=== PATIENT | female | born 1950 | race Caucasian/White ===

== ENCOUNTER 2017-10-20 10:33 | Outpatient (CLI) | payer MEDICARE ==
[2017-10-20 11:58] LABS: Hemoglobin 12.9 g/dL (12.0-16.0)
[2017-10-20 12:19] LABS: Anion Gap 13 mmol/L (10-20); BUN (Urea Nitrogen) 28 mg/dL (9.8-20.1); Calc. Creatinine Clearance 0 mL/min (70-130); Calcium 9.3 mg/dL (7.8-10.44); Carbon Dioxide 32 mmol/L (23-31); Chloride 99 mmol/L (98-107); Estimated GFR-MDRD 42; Glucose 167 mg/dL (80-115); Potassium 4.3 mmol/L (3.5-5.1); Sodium 140 mmol/L (136-145)
== END 2017-10-20 10:34 | disposition home or self-care (01) ==
LOC: LABBT 10:33
PROVIDERS: ATTEND Internal Medicine Cardiovascular Disease
DX: Z01.812 Encounter for preprocedural laboratory examination (principal); R94.39 Abnormal result of other cardiovascular function study
CPT/HCPCS: 80048; 85014; 85018

== ENCOUNTER 2018-06-17 11:24 | Outpatient (CLI) | payer MEDICARE ==
--- NOTE | 2018-06-21 13:25 | MMO ---
Bilateral MAMMO Bilat Screen [facility]. CLINICAL HISTORY: Patient is 68 years old and is seen for screening. The patient has no family history of breast cancer. The patient has no personal history of cancer. The patient has a history of right Ultrasound Guided Core Biopsy in September,. VIEWS: The views performed were: bilateral craniocaudal with tomosynthesis and bilateral mediolateral oblique with tomosynthesis. FILMS COMPARED: The present examination has been compared to prior imaging studies performed at [facility] [place] on 09/23/2012, 09/24/2012, 09/28/2013, 10/02/2014, 01/10/2016 and 01/12/2017, and at [facility] on 08/12/2006, 10/27/2007 and 11/29/2008. MAMMOGRAM FINDINGS: There are scattered fibroglandular densities. Finding 1: There are stable benign appearing calcifications seen in both breasts. Finding 2: There are stable surgical clips seen in the right breast. There are no suspicious masses, suspicious calcifications, or new areas of architectural distortion. IMPRESSION: THERE IS NO MAMMOGRAPHIC EVIDENCE OF MALIGNANCY. A ROUTINE FOLLOW-UP MAMMOGRAM IN 1 YEAR IS RECOMMENDED. 3BTHE RESULTS OF THIS EXAM WERE SENT TO THE PATIENT.0B ACR BI-RADS Category 2 - Benign finding MAMMOGRAPHY NOTE: 1. A negative mammogram report should not delay a biopsy if a dominant of clinically suspicious mass is present. 2. Approximately 10% to 15% of breast cancers are not detected by mammography. 3. Adenosis and dense breasts may obscure an underlying neoplasm.
== END 2018-06-17 11:25 | disposition home or self-care (01) ==
LOC: BICMAMMO 11:24
PROVIDERS: ATTEND Physician Assistant
DX: Z12.31 Encounter for screening mammogram for malignant neoplasm of breast (principal); Z98.890 Other specified postprocedural states
CPT/HCPCS: 77063; 77067

== ENCOUNTER 2018-06-30 10:02 | Outpatient (CLI) | payer MEDICARE ==
--- NOTE | 2018-06-30 10:28 | RAD ---
F3 views left foot. HISTORY: Intermittent left foot pain first digit. AP, lateral and oblique views left foot is obtained. There is joint space narrowing with osteophytes seen in the first metatarsophalangeal joint. Degenerative changes with osteoarthritis seen in the midfoot tarsal joints. There is also a large tone caneal spur seen. No evidence of acute bony fracture seen. IMPRESSION: Mid tarsal left foot osteoarthritic changes as well as osteoarthritis in the first metata rsophalangeal joint.
== END 2018-06-30 10:03 | disposition home or self-care (01) ==
LOC: BICRAD 10:02
PROVIDERS: ATTEND Podiatrist
DX: M79.672 Pain in left foot (principal); M19.072 Primary osteoarthritis, left ankle and foot

== ENCOUNTER 2019-06-02 10:44 | Outpatient (CLI) | payer MEDICARE ==
--- NOTE | 2019-06-02 11:07 | RAD ---
3 views of left toes: 06/02/2019 COMPARISON: None HISTORY: Gout, pain FINDINGS: There is erosive change with sclerotic margins along the medial aspect of the first proxima l phalangeal base, consistent with the provided history of gout. 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 No acute fracture or evidence of dislocation is seen. IMPRESSION: Erosive change at the medial base of the first proximal phalanx consistent with the provi ded history of gout. There is severe associated secondary osteoarthritis of the first metatarsal-phalangeal joint.
== END 2019-06-02 10:45 | disposition home or self-care (01) ==
LOC: BICRAD 10:44
PROVIDERS: ATTEND Podiatrist
DX: M10.00 Idiopathic gout, unspecified site (principal)
CPT/HCPCS: 36415; 84550

== ENCOUNTER 2020-08-02 09:06 | Inpatient (IN) | payer MEDICARE ==
[2020-08-02 10:07] LABS: #Basophils 0.1 thou/uL (0.0-0.2); #Eosinphils 0.1 thou/uL (0.0-0.7); #Lymphocytes 1.8 thou/uL (1.20-3.40); #Monocytes 0.4 thou/uL (0.11-0.59); #Neutrophils 4.7 thou/uL (1.40-6.50); %Basophils 1.7 % (0.0-1.0); %Eosinophils 0.7 % (0.0-10.0); %Lymphocytes 25.2 % (21.0-51.0); %Monocytes 6.3 % (0.0-10.0); %Neutrophils 66.1 % (42.0-75.0); Hemoglobin 12.8 g/dL (12.0-16.0); Mean Corpuscular HGB CONC 31.7 g/dL (32.0-36.0); Mean Corpuscular Hemoglobin 29.4 pg (27.0-31.0); Mean Corpuscular Volume 92.8 fL (78.0-98.0); Mean Platelet Volume 7.7 fL (7.4-10.4); Platelet Count 250 thou/uL (130-400); RBC Distribution Width 12.7 % (11.5-14.5); Red Blood Cell (RBC) Count 4.36 mill/uL (4.20-5.40)
[2020-08-02 10:23] LABS: ALT (SGPT) 39 U/L (8-55); AST (SGOT) 32 U/L (5-34); Albumin 3.5 g/dL (3.4-4.8); Alkaline Phosphatase 69 U/L (40-110); Anion Gap 13 mmol/L (10-20); BUN (Urea Nitrogen) 24 mg/dL (9.8-20.1); Bilirubin, Total 0.6 mg/dL (0.2-1.2); Calc. Creatinine Clearance 0 mL/min (70-130); Calcium 8.9 mg/dL (7.8-10.44); Carbon Dioxide 25 mmol/L (23-31); Chloride 99 mmol/L (98-107); Globulin 2.5 g/dL (2.4-3.5); Glucose 168 mg/dL (80-115); Potassium 3.7 mmol/L (3.5-5.1); Sodium 133 mmol/L (136-145)
[2020-08-02] MEDS ORDERED: Acetaminophen 325 MG TAB PO PRN (10:53)
[2020-08-02] MEDS ORDERED: Acetaminophen 650 MG Suppository PR PRN (10:53)
[2020-08-02] MEDS ORDERED: Metoprolol Tartrate 25 MG TAB PO SCH ×2 (11:04→21:00)
[2020-08-02] MEDS ORDERED: Iopamidol-370 76% 500 ML 1 ML ONE (11:21)
[2020-08-02] MEDS ORDERED: Dextrose 50% Abboject 50 ML SYRINGE SLOW IVP PRN (11:57)
[2020-08-02] MEDS ORDERED: Dextrose 5% in Water 1,000 ML IV PRN (11:57)
[2020-08-02] MEDS ORDERED: HumaLOG 300 UNITS/3 ML VIAL SC PRN ×2 (11:57)
[2020-08-02] MEDS ORDERED: Furosemide 40 MG/4 ML VIAL ONE (14:10)
[2020-08-02] MEDS: Furosemide 40 MG/4 ML VIAL SLOW IVP SCH (14:28)
[2020-08-02 16:06] LABS: Troponin I 0.018 ng/mL (< 0.028)
[2020-08-02 16:44] LABS: SARS-CoV-2 PCR by NAA Not Detected (NotDetected)
[2020-08-02] MEDS: Carvedilol 6.25 MG TAB PO SCH (17:00)
[2020-08-02] MEDS ORDERED: HumaLOG 300 UNITS/3 ML VIAL ONE (17:05)
[2020-08-02] MEDS ORDERED: traMADol HCl 50 MG TAB PO SCH (20:45)
[2020-08-02 20:48] VITALS: BMI 38.1
[2020-08-02] MEDS: Enoxaparin Sodium 100 MG/ML SYRINGE SC SCH (21:19)
[2020-08-03 05:25] LABS: #Basophils 0.1 thou/uL (0.0-0.2); #Eosinphils 0.1 thou/uL (0.0-0.7); #Lymphocytes 2.4 thou/uL (1.20-3.40); #Monocytes 0.4 thou/uL (0.11-0.59); #Neutrophils 2.1 thou/uL (1.40-6.50); %Basophils 1.5 % (0.0-1.0); %Eosinophils 1.5 % (0.0-10.0); %Lymphocytes 46.8 % (21.0-51.0); %Monocytes 8.4 % (0.0-10.0); %Neutrophils 41.8 % (42.0-75.0); Hemoglobin 12.2 g/dL (12.0-16.0); Mean Corpuscular HGB CONC 31.3 g/dL (32.0-36.0); Mean Corpuscular Volume 92.6 fL (78.0-98.0); Mean Platelet Volume 8.2 fL (7.4-10.4); Platelet Count 219 thou/uL (130-400); RBC Distribution Width 12.7 % (11.5-14.5)
[2020-08-03 05:52] LABS: Anion Gap 11 mmol/L (10-20); BUN (Urea Nitrogen) 22 mg/dL (9.8-20.1); Calc. Creatinine Clearance 103 mL/min (70-130); Calcium 8.8 mg/dL (7.8-10.44); Carbon Dioxide 29 mmol/L (23-31); Chloride 101 mmol/L (98-107); Glucose 113 mg/dL (80-115); Potassium 3.5 mmol/L (3.5-5.1); Sodium 137 mmol/L (136-145)
[2020-08-03] MEDS ORDERED: Levothyroxine Sodium 100 MCG TAB PO SCH (06:00)
[2020-08-03] MEDS: Furosemide 40 MG/4 ML VIAL SLOW IVP SCH ×2 (06:37→15:46)
[2020-08-03] MEDS ORDERED: Aspirin Chewable 81 MG TAB PO SCH (09:00)
[2020-08-03] MEDS ORDERED: Pregabalin 75 MG CAP PO SCH (09:00)
[2020-08-03] MEDS ORDERED: Triamterene/Hydrochlorothiazide 37.5 mg/25 mg Tablet PO SCH (09:00)
[2020-08-03] MEDS: Enoxaparin Sodium 100 MG/ML SYRINGE SC SCH (09:14)
[2020-08-03] MEDS: Carvedilol 6.25 MG TAB PO SCH ×2 (09:14→15:46)
[2020-08-03 11:40] VITALS: TEMP 98.4
[2020-08-03 16:36] VITALS: BP 167/111
[2020-08-03] MEDS ORDERED: Apixaban 5 MG TAB PO SCH (21:00)
== END 2020-08-03 16:45 | disposition home or self-care (01) | DRG 308 ==
LOC: ERS 09:06 → OBSVTOIN 11:00 → ERHOLD 11:00 → 2NO 20:14
PROVIDERS: ADMIT Internal Medicine; ATTEND Internal Medicine
DX: I48.91 Unspecified atrial fibrillation (principal); I50.23 Acute on chronic systolic (congestive) heart failure; I11.0 Hypertensive heart disease with heart failure; Z20.822 Contact with and (suspected) exposure to COVID-19; E78.5 Hyperlipidemia, unspecified; M19.90 Unspecified osteoarthritis, unspecified site; E11.9 Type 2 diabetes mellitus without complications; G89.29 Other chronic pain; M54.9 Dorsalgia, unspecified; Z96.641 Presence of right artificial hip joint; E89.0 Postprocedural hypothyroidism; Z96.653 Presence of artificial knee joint, bilateral; I08.3 Combined rheumatic disorders of mitral, aortic and tricuspid valves; Z82.49 Family history of ischemic heart disease and other diseases of the circulatory system; Z79.899 Other long term (current) drug therapy; Z79.4 Long term (current) use of insulin; Z79.890 Hormone replacement therapy
CPT/HCPCS: 36415; 36416; 71045; 71275; 80048; 80053; 83735; 83880; 84443; 84484; 85025; 87635; 93005; 93306; 96374; G0378; J1650; J1815; J1940; Q9967; U0003; U0005

== ENCOUNTER 2020-09-12 12:03 | Inpatient (IN) | payer MEDICARE ==
[2020-09-12 12:31] LABS: #Monocytes 0.6 thou/uL (0.11-0.59); %Basophils 0.1 % (0.0-1.0); %Eosinophils 0.1 % (0.0-10.0); %Lymphocytes 6.3 % (21.0-51.0); %Monocytes 3.7 % (0.0-10.0); %Neutrophils 89.8 % (42.0-75.0); Hemoglobin 13.1 g/dL (12.0-16.0); Mean Corpuscular HGB CONC 32.7 g/dL (32.0-36.0); Mean Corpuscular Hemoglobin 29.6 pg (27.0-31.0); Mean Corpuscular Volume 90.7 fL (78.0-98.0); Mean Platelet Volume 8.9 fL (7.4-10.4); Platelet Count 209 thou/uL (130-400); RBC Distribution Width 12.1 % (11.5-14.5); White Blood Cell (WBC) Count 15.6 thou/uL (4.8-10.8)
[2020-09-12 12:55] LABS: ALT (SGPT) 10 U/L (8-55); AST (SGOT) 13 U/L (5-34); Albumin 3.1 g/dL (3.4-4.8); Alkaline Phosphatase 80 U/L (40-110); Anion Gap 17 mmol/L (10-20); BUN (Urea Nitrogen) 49 mg/dL (9.8-20.1); CK (CPK) 49 U/L (29-168); Calc. Creatinine Clearance 0 mL/min (70-130); Calcium 8.7 mg/dL (7.8-10.44); Carbon Dioxide 24 mmol/L (23-31); Chloride 94 mmol/L (98-107); Globulin 3.3 g/dL (2.4-3.5); Glucose 123 mg/dL (80-115); Potassium 3.7 mmol/L (3.5-5.1); Protein, Total 6.4 g/dL (5.8-8.1); Sodium 131 mmol/L (136-145)
[2020-09-12] MEDS ORDERED: Iopamidol-370 76% 500 ML 1 ML ONE (14:01)
[2020-09-12] MEDS ORDERED: Cefepime 2 GM VIAL ONE (14:05)
[2020-09-12] MEDS ORDERED: VANCOMYCIN 2 GRAM/400 ML BAG 2 GM in Premix Bag 1 BAG IVPB SCH (14:15)
[2020-09-12] MEDS ORDERED: Enoxaparin Sodium 40 MG/0.4 ML SYRINGE SC SCH (16:30)
[2020-09-12 18:52] VITALS: BMI 36.0
[2020-09-12] MEDS: Sodium Chloride 0.9% 1,000 ML IV SCH (19:20)
[2020-09-12] MEDS: Famotidine/PF 20 mg/2ml Vial SLOW IVP SCH (20:22)
[2020-09-12] MEDS ORDERED: Dextrose 50% Abboject 50 ML SYRINGE ONE (21:29)
[2020-09-12] MEDS ORDERED: Dextrose 50% Abboject 50 ML SYRINGE SLOW IVP PRN (21:36)
[2020-09-12] MEDS: Piperacillin/Tazobactam 3.375 GM in Sodium Chloride 0.9% 100 ML IVPB SCH (21:52)
[2020-09-13] MEDS: Sodium Chloride 0.9% 1,000 ML IV SCH ×3 (03:25→22:53)
[2020-09-13 03:26] LABS: #Lymphocytes 0.9 thou/uL (1.20-3.40); #Monocytes 0.5 thou/uL (0.11-0.59); #Neutrophils 10.5 thou/uL (1.40-6.50); %Basophils 0.1 % (0.0-1.0); %Eosinophils 0.4 % (0.0-10.0); %Lymphocytes 7.5 % (21.0-51.0); %Monocytes 4.2 % (0.0-10.0); %Neutrophils 87.8 % (42.0-75.0); Hemoglobin 12.4 g/dL (12.0-16.0); Mean Corpuscular HGB CONC 32.9 g/dL (32.0-36.0); Mean Corpuscular Hemoglobin 29.6 pg (27.0-31.0); Mean Corpuscular Volume 90.1 fL (78.0-98.0); Mean Platelet Volume 8.8 fL (7.4-10.4); Platelet Count 192 thou/uL (130-400); RBC Distribution Width 12.2 % (11.5-14.5); Red Blood Cell (RBC) Count 4.19 mill/uL (4.20-5.40); White Blood Cell (WBC) Count 11.9 thou/uL (4.8-10.8)
[2020-09-13 03:45] LABS: Anion Gap 14 mmol/L (10-20); BUN (Urea Nitrogen) 43 mg/dL (9.8-20.1); Calc. Creatinine Clearance 80 mL/min (70-130); Calcium 8.1 mg/dL (7.8-10.44); Carbon Dioxide 20 mmol/L (23-31); Chloride 101 mmol/L (98-107); Glucose 92 mg/dL (80-115); Sodium 132 mmol/L (136-145)
[2020-09-13 03:48] LABS: Potassium 2.9 mmol/L (3.5-5.1)
[2020-09-13] MEDS: Piperacillin/Tazobactam 3.375 GM in Sodium Chloride 0.9% 100 ML IVPB SCH ×3 (05:27→17:36)
[2020-09-13] MEDS: Potassium Chloride 20 MEQ in Premix Bag 1 BAG IVPB SCH ×2 (05:50→08:23)
[2020-09-13] MEDS: Enoxaparin Sodium 40 MG/0.4 ML SYRINGE SC SCH (08:23)
[2020-09-13] MEDS: Famotidine/PF 20 mg/2ml Vial SLOW IVP SCH ×2 (08:23→20:21)
[2020-09-13] MEDS ORDERED: Metoprolol Tartrate 50 MG TAB PO SCH (09:30)
[2020-09-13] MEDS ORDERED: Vancomycin 1.5 GRAM/300 ML BAG 1.5 GM in Premix Bag 1 BAG IVPB SCH (15:00)
[2020-09-13 15:06] LABS: SARS-CoV-2 PCR by NAA DETECTED (NotDetected)
[2020-09-13] MEDS: Pregabalin 75 MG CAP PO SCH ×2 (15:58→20:20)
[2020-09-13] MEDS ORDERED: Digoxin 0.5 MG/2 ML AMP SLOW IVP SCH (19:45)
[2020-09-13] MEDS: Metoprolol Tartrate 25 MG TAB PO SCH (20:21)
[2020-09-13 21:03] LABS: SARS-CoV-2 IgG Ab Reactive (NonReactive); SARS-CoV-2 IgG Index 4.57 S/CO (< 1.40)
[2020-09-14] MEDS: Piperacillin/Tazobactam 3.375 GM in Sodium Chloride 0.9% 100 ML IVPB SCH ×2 (00:02→06:19)
[2020-09-14 03:21] LABS: #Basophils 0.1 thou/uL (0.0-0.2); #Eosinphils 0.1 thou/uL (0.0-0.7); #Lymphocytes 1.3 thou/uL (1.20-3.40); #Monocytes 0.7 thou/uL (0.11-0.59); #Neutrophils 11.2 thou/uL (1.40-6.50); %Basophils 0.6 % (0.0-1.0); %Eosinophils 0.7 % (0.0-10.0); %Neutrophils 83.7 % (42.0-75.0); Hemoglobin 12.1 g/dL (12.0-16.0); Mean Corpuscular HGB CONC 33.4 g/dL (32.0-36.0); Mean Corpuscular Hemoglobin 30.1 pg (27.0-31.0); Mean Corpuscular Volume 90.1 fL (78.0-98.0); Mean Platelet Volume 8.6 fL (7.4-10.4); Platelet Count 214 thou/uL (130-400); RBC Distribution Width 12.2 % (11.5-14.5); Red Blood Cell (RBC) Count 4.03 mill/uL (4.20-5.40); White Blood Cell (WBC) Count 13.3 thou/uL (4.8-10.8)
[2020-09-14 03:44] LABS: ALT (SGPT) 9 U/L (8-55); AST (SGOT) 11 U/L (5-34); Albumin 2.7 g/dL (3.4-4.8); Alkaline Phosphatase 69 U/L (40-110); Anion Gap 12 mmol/L (10-20); BUN (Urea Nitrogen) 42 mg/dL (9.8-20.1); Bilirubin, Total 1.2 mg/dL (0.2-1.2); Calc. Creatinine Clearance 72 mL/min (70-130); Calcium 8.2 mg/dL (7.8-10.44); Carbon Dioxide 19 mmol/L (23-31); Chloride 104 mmol/L (98-107); Globulin 2.9 g/dL (2.4-3.5); Glucose 149 mg/dL (80-115); Magnesium 2.3 mg/dL (1.6-2.6); Potassium 3.3 mmol/L (3.5-5.1); Protein, Total 5.6 g/dL (5.8-8.1); Sodium 132 mmol/L (136-145)
[2020-09-14] MEDS: Levothyroxine Sodium 100 MCG TAB PO SCH (06:19)
[2020-09-14] MEDS ORDERED: Potassium Chloride 40 MEQ in Sodium Chloride 0.9% 250 ML 250 ML IVPB SCH (08:30)
[2020-09-14] MEDS: Alogliptin 25 MG TAB PO SCH (08:52)
[2020-09-14] MEDS: Sodium Chloride 0.9% 1,000 ML IV SCH (08:52)
[2020-09-14] MEDS: Famotidine 20 MG TAB PO SCH ×2 (08:53→20:11)
[2020-09-14] MEDS: Pregabalin 75 MG CAP PO SCH ×3 (08:53→20:11)
[2020-09-14] MEDS: Enoxaparin Sodium 40 MG/0.4 ML SYRINGE SC SCH (08:53)
[2020-09-14] MEDS: Metoprolol Tartrate 25 MG TAB PO SCH ×2 (08:53→20:19)
[2020-09-14] MEDS: metroNIDAZOLE 500 MG TAB PO SCH ×3 (10:35→20:11)
[2020-09-14] MEDS: traMADol HCl 50 MG TAB PO PRN (20:11)
[2020-09-14] MEDS: Apixaban 5 MG TAB PO SCH (20:11)
[2020-09-14] MEDS ORDERED: Polyethylene Glycol 3350 17 GM Packet PO STA (21:13)
[2020-09-14] MEDS ORDERED: Potassium Chloride 10 MEQ in Dextrose 5 % And 0.9 % NaCl 1,000 ML IV SCH (21:30)
[2020-09-14] MEDS ORDERED: Lactated Ringer's 1,000 ML IV SCH (21:30)
[2020-09-14] MEDS ORDERED: Dextrose 50% Abboject 50 ML SYRINGE SLOW IVP PRN (21:57)
[2020-09-14] MEDS ORDERED: Dextrose 5% in Water 1,000 ML IV PRN (21:57)
[2020-09-14] MEDS: NS 0.9% w/ 20 MEQ KCL 1,000 ML/1,000 ML BAG IV SCH (23:30)
[2020-09-15] MEDS ORDERED: Digoxin 0.5 MG/2 ML AMP SLOW IVP SCH ×2 (00:30→23:15)
[2020-09-15] MEDS: Sodium Chloride 0.9% 1,000 ML IV SCH (03:27)
[2020-09-15] MEDS: Levothyroxine Sodium 100 MCG TAB PO SCH (05:26)
[2020-09-15 05:44] LABS: #Lymphocytes 1.4 thou/uL (1.20-3.40); #Neutrophils 10.9 thou/uL (1.40-6.50); %Basophils 0.2 % (0.0-1.0); %Eosinophils 0.3 % (0.0-10.0); %Lymphocytes 10.7 % (21.0-51.0); %Monocytes 7.4 % (0.0-10.0); %Neutrophils 81.4 % (42.0-75.0); Mean Corpuscular HGB CONC 32.7 g/dL (32.0-36.0); Mean Corpuscular Hemoglobin 29.7 pg (27.0-31.0); Mean Corpuscular Volume 90.8 fL (78.0-98.0); Mean Platelet Volume 8.3 fL (7.4-10.4); Platelet Count 234 thou/uL (130-400); RBC Distribution Width 12.2 % (11.5-14.5); Red Blood Cell (RBC) Count 4.37 mill/uL (4.20-5.40); White Blood Cell (WBC) Count 13.3 thou/uL (4.8-10.8)
[2020-09-15 05:53] LABS: INR-International Normal Ratio 1.5
[2020-09-15 06:03] LABS: Phosphorus 2.5 mg/dL (2.3-4.7)
[2020-09-15 06:05] LABS: Digoxin 1.65 ng/mL (0.8-2.0)
[2020-09-15 06:06] LABS: Anion Gap 13 mmol/L (10-20); BUN (Urea Nitrogen) 28 mg/dL (9.8-20.1); Calc. Creatinine Clearance 93 mL/min (70-130); Calcium 8.5 mg/dL (7.8-10.44); Carbon Dioxide 20 mmol/L (23-31); Chloride 106 mmol/L (98-107); Glucose 132 mg/dL (80-115); Magnesium 2.2 mg/dL (1.6-2.6); Sodium 135 mmol/L (136-145)
[2020-09-15 06:15] LABS: Bilirubin Negative (Negative); Blood, Urine Negative (Negative); Clarity Clear (Clear); Glucose, Urine (Dipstick) Normal (Negative); Ketone, Urine 10 mg/dL (Negative); Leukocyte Negative Leu/uL (Negative); Nitrite Negative (Negative); Protein, Urine (Dipstick) 30 mg/dL (Neg-Trace); RBC/HPF 0-3 HPF (0-3); Specific Gravity, Urine 1.017 (1.002-1.036); Squamous Epithelial 0-3 HPF (0-3); WBC/HPF 0-3 HPF (0-3); pH, Urine 5.5 (5.0-9.0)
[2020-09-15 06:16] LABS: Bacteria/HPF 1+ HPF (None Seen)
[2020-09-15] MEDS: metroNIDAZOLE 500 MG TAB PO SCH ×3 (08:19→21:00)
[2020-09-15] MEDS: Metoprolol Tartrate 25 MG TAB PO SCH ×3 (08:19→21:00)
[2020-09-15] MEDS: Alogliptin 25 MG TAB PO SCH (08:19)
[2020-09-15] MEDS: Cholecalciferol 1,000 UNITS (25 MCG) TAB PO SCH (08:22)
[2020-09-15] MEDS: Famotidine 20 MG TAB PO SCH ×2 (08:22→21:00)
[2020-09-15] MEDS: Senokot S 8.6-50 MG TAB PO SCH ×2 (08:22→21:01)
[2020-09-15] MEDS: Pregabalin 75 MG CAP PO SCH ×3 (08:24→20:58)
[2020-09-15] MEDS ORDERED: M PROGEST ACET PO SCH (09:00)
[2020-09-15] MEDS ORDERED: Potassium Chloride 10 MEQ TAB PO SCH (09:00)
[2020-09-15] MEDS ORDERED: ESTROGEN CON PO SCH (09:00)
[2020-09-15] MEDS: NS 0.9% w/ 20 MEQ KCL 1,000 ML/1,000 ML BAG IV SCH ×2 (10:25→20:56)
[2020-09-15 10:44] LABS: Band 19 % (5-11); Hemoglobin 13.7 g/dL (12.0-16.0); Lymphocytes 14 % (21-51); MDiff Complete? YES; Mean Corpuscular HGB CONC 33.2 g/dL (32.0-36.0); Mean Corpuscular Hemoglobin 30.6 pg (27.0-31.0); Mean Platelet Volume 8.1 fL (7.4-10.4); Monocytes 6 % (0-10); Neutrophil 61 % (42-75); Platelet Count 248 thou/uL (130-400); RBC Distribution Width 12.1 % (11.5-14.5); Red Blood Cell (RBC) Count 4.49 mill/uL (4.20-5.40); White Blood Cell (WBC) Count 11.8 thou/uL (4.8-10.8)
[2020-09-15 10:46] LABS: Digoxin 0.81 ng/mL (0.8-2.0)
[2020-09-15] MEDS ORDERED: Apixaban 5 MG TAB PO SCH (11:15)
[2020-09-15] MEDS ORDERED: Insulin Regular 300 UNITS/3 ML VIAL SC PRN ×2 (11:33)
[2020-09-15] MEDS: traMADol HCl 50 MG TAB PO PRN (16:05)
[2020-09-15] MEDS: Potassium Chloride 10 MEQ TAB PO SCH (16:06)
[2020-09-15] MEDS: Apixaban 5 MG TAB PO SCH (21:00)
[2020-09-16 05:26] LABS: #Eosinphils 0.1 thou/uL (0.0-0.7); #Lymphocytes 1.5 thou/uL (1.20-3.40); #Neutrophils 11.1 thou/uL (1.40-6.50); %Basophils 0.1 % (0.0-1.0); %Monocytes 7.4 % (0.0-10.0); %Neutrophils 80.6 % (42.0-75.0); Hemoglobin 12.9 g/dL (12.0-16.0); Mean Corpuscular HGB CONC 32.8 g/dL (32.0-36.0); Mean Corpuscular Hemoglobin 29.8 pg (27.0-31.0); Mean Corpuscular Volume 90.9 fL (78.0-98.0); Mean Platelet Volume 8.1 fL (7.4-10.4); Platelet Count 252 thou/uL (130-400); RBC Distribution Width 12.2 % (11.5-14.5); Red Blood Cell (RBC) Count 4.32 mill/uL (4.20-5.40); White Blood Cell (WBC) Count 13.7 thou/uL (4.8-10.8)
[2020-09-16 05:50] LABS: ALT (SGPT) 9 U/L (8-55); AST (SGOT) 11 U/L (5-34); Albumin 2.6 g/dL (3.4-4.8); Alkaline Phosphatase 62 U/L (40-110); Anion Gap 13 mmol/L (10-20); BUN (Urea Nitrogen) 20 mg/dL (9.8-20.1); Bilirubin, Total 0.7 mg/dL (0.2-1.2); Calc. Creatinine Clearance 110 mL/min (70-130); Calcium 8.4 mg/dL (7.8-10.44); Carbon Dioxide 20 mmol/L (23-31); Chloride 108 mmol/L (98-107); Globulin 2.6 g/dL (2.4-3.5); Glucose 157 mg/dL (80-115); Potassium 4.5 mmol/L (3.5-5.1); Protein, Total 5.2 g/dL (5.8-8.1); Sodium 136 mmol/L (136-145)
[2020-09-16] MEDS: Levothyroxine Sodium 100 MCG TAB PO SCH (06:23)
[2020-09-16] MEDS: NS 0.9% w/ 20 MEQ KCL 1,000 ML/1,000 ML BAG IV SCH ×2 (08:01→15:07)
[2020-09-16 08:41] LABS: Band 7 % (5-11); Lymphocytes 13 % (21-51); Monocytes 4 % (0-10)
[2020-09-16 08:43] LABS: Neutrophil 76 % (42-75)
[2020-09-16] MEDS: Potassium Chloride 10 MEQ TAB PO SCH (09:00)
[2020-09-16] MEDS: Digoxin 0.5 MG/2 ML AMP SLOW IVP SCH (10:26)
[2020-09-16] MEDS: Senokot S 8.6-50 MG TAB PO SCH ×2 (10:36→20:16)
[2020-09-16] MEDS: metroNIDAZOLE 500 MG TAB PO SCH ×3 (10:36→20:16)
[2020-09-16] MEDS: Apixaban 5 MG TAB PO SCH ×2 (10:36→20:16)
[2020-09-16] MEDS: Metoprolol Tartrate 25 MG TAB PO SCH ×2 (10:44→20:16)
[2020-09-16] MEDS: Pregabalin 75 MG CAP PO SCH ×3 (10:44→20:14)
[2020-09-16] MEDS: Famotidine 20 MG TAB PO SCH ×2 (10:45→20:15)
[2020-09-16] MEDS: Cholecalciferol 1,000 UNITS (25 MCG) TAB PO SCH (10:46)
[2020-09-16] MEDS: traMADol HCl 50 MG TAB PO PRN ×3 (10:51→20:42)
[2020-09-16] MEDS: Alogliptin 25 MG TAB PO SCH (10:51)
[2020-09-16] MEDS ORDERED: Ondansetron ODT 4 MG TAB PO PRN (18:23)
[2020-09-16] MEDS ORDERED: Ondansetron PF 4 MG/2 ML Vial IVP PRN (18:40)
[2020-09-16] MEDS: Furosemide 20 MG TAB PO SCH (20:15)
[2020-09-17] MEDS: Levothyroxine Sodium 100 MCG TAB PO SCH (05:13)
[2020-09-17 05:38] LABS: Hemoglobin 12.8 g/dL (12.0-16.0); Mean Corpuscular HGB CONC 32.3 g/dL (32.0-36.0); Mean Corpuscular Hemoglobin 29.8 pg (27.0-31.0); Mean Corpuscular Volume 92.2 fL (78.0-98.0); Mean Platelet Volume 7.9 fL (7.4-10.4); Platelet Count 280 thou/uL (130-400); RBC Distribution Width 12.3 % (11.5-14.5); White Blood Cell (WBC) Count 15.1 thou/uL (4.8-10.8)
[2020-09-17 05:53] LABS: Digoxin 1.25 ng/mL (0.8-2.0)
[2020-09-17 06:05] LABS: Anion Gap 12 mmol/L (10-20); BUN (Urea Nitrogen) 16 mg/dL (9.8-20.1); Calc. Creatinine Clearance 116 mL/min (70-130); Calcium 8.9 mg/dL (7.8-10.44); Carbon Dioxide 19 mmol/L (23-31); Chloride 105 mmol/L (98-107); Glucose 141 mg/dL (80-115); Phosphorus 3.1 mg/dL (2.3-4.7); Potassium 4.7 mmol/L (3.5-5.1); Sodium 131 mmol/L (136-145)
[2020-09-17 06:14] LABS: Band 14 % (5-11); Eosinophils 2 % (0-10); Lymphocytes 7 % (21-51); MDiff Complete? YES; Monocytes 6 % (0-10); Neutrophil 71 % (42-75)
[2020-09-17] MEDS: Pregabalin 75 MG CAP PO SCH ×3 (09:01→22:31)
[2020-09-17] MEDS: Senokot S 8.6-50 MG TAB PO SCH (09:01)
[2020-09-17] MEDS: Famotidine 20 MG TAB PO SCH ×2 (09:02→22:31)
[2020-09-17] MEDS: Apixaban 5 MG TAB PO SCH ×2 (09:02→22:32)
[2020-09-17] MEDS: Furosemide 20 MG TAB PO SCH ×2 (09:02→22:32)
[2020-09-17] MEDS: metroNIDAZOLE 500 MG TAB PO SCH ×3 (09:02→22:30)
[2020-09-17] MEDS: Cholecalciferol 1,000 UNITS (25 MCG) TAB PO SCH (09:03)
[2020-09-17] MEDS: Metoprolol Tartrate 25 MG TAB PO SCH ×2 (09:04→18:45)
[2020-09-17] MEDS: Alogliptin 25 MG TAB PO SCH (09:05)
[2020-09-17] MEDS: Digoxin 0.5 MG/2 ML AMP SLOW IVP SCH (11:42)
[2020-09-17] MEDS: traMADol HCl 50 MG TAB PO PRN (12:46)
[2020-09-17] MEDS ORDERED: Saccharomyces boulardii 250 MG CAP PO SCH (15:45)
[2020-09-17] MEDS ORDERED: Benzonatate 100 MG CAP PO PRN (22:53)
[2020-09-18] MEDS: Levothyroxine Sodium 100 MCG TAB PO SCH (06:12)
[2020-09-18] MEDS: Pregabalin 75 MG CAP PO SCH ×3 (08:57→21:40)
[2020-09-18] MEDS: Furosemide 20 MG TAB PO SCH ×2 (08:57→21:38)
[2020-09-18] MEDS: metroNIDAZOLE 500 MG TAB PO SCH ×3 (08:57→21:37)
[2020-09-18] MEDS: Apixaban 5 MG TAB PO SCH ×2 (08:57→21:37)
[2020-09-18] MEDS: Famotidine 20 MG TAB PO SCH ×2 (08:57→21:37)
[2020-09-18] MEDS: Metoprolol Tartrate 25 MG TAB PO SCH ×2 (08:57→21:38)
[2020-09-18] MEDS: Cholecalciferol 1,000 UNITS (25 MCG) TAB PO SCH (08:58)
[2020-09-18] MEDS: Alogliptin 25 MG TAB PO SCH (08:59)
[2020-09-18] MEDS: Digoxin 0.5 MG/2 ML AMP SLOW IVP SCH (10:00)
[2020-09-18] MEDS ORDERED: Digoxin 0.125 MG TAB PO SCH (10:45)
[2020-09-18] MEDS: Saccharomyces boulardii 250 MG CAP PO SCH (11:14)
[2020-09-18] MEDS: Methyl Salicylate/Menthol 85 GM TUBE TOP PRN ×2 (13:20→17:46)
[2020-09-18] MEDS: traMADol HCl 50 MG TAB PO PRN (21:38)
[2020-09-19 05:17] LABS: #Basophils 0.1 thou/uL (0.0-0.2); #Eosinphils 0.1 thou/uL (0.0-0.7); #Lymphocytes 1.7 thou/uL (1.20-3.40); #Monocytes 1.2 thou/uL (0.11-0.59); #Neutrophils 15.3 thou/uL (1.40-6.50); %Basophils 0.3 % (0.0-1.0); %Eosinophils 0.8 % (0.0-10.0); %Lymphocytes 9.3 % (21.0-51.0); %Monocytes 6.6 % (0.0-10.0); %Neutrophils 83.1 % (42.0-75.0); Hemoglobin 12.6 g/dL (12.0-16.0); Mean Corpuscular Hemoglobin 29.6 pg (27.0-31.0); Mean Corpuscular Volume 89.7 fL (78.0-98.0); Mean Platelet Volume 7.7 fL (7.4-10.4); Platelet Count 310 thou/uL (130-400); RBC Distribution Width 12.2 % (11.5-14.5); Red Blood Cell (RBC) Count 4.27 mill/uL (4.20-5.40); White Blood Cell (WBC) Count 18.4 thou/uL (4.8-10.8)
[2020-09-19] MEDS: Levothyroxine Sodium 100 MCG TAB PO SCH (05:33)
[2020-09-19 06:04] LABS: Anion Gap 13 mmol/L (10-20); BUN (Urea Nitrogen) 14 mg/dL (9.8-20.1); Calc. Creatinine Clearance 109 mL/min (70-130); Carbon Dioxide 24 mmol/L (23-31); Chloride 97 mmol/L (98-107); Glucose 162 mg/dL (80-115); Magnesium 1.4 mg/dL (1.6-2.6); Potassium 3.6 mmol/L (3.5-5.1); Sodium 130 mmol/L (136-145)
[2020-09-19] MEDS ORDERED: Magnesium Sulfate 4 GM in Sodium Chloride 0.9% 250 ML 250 ML IVPB SCH (08:00)
[2020-09-19] MEDS ORDERED: Potassium Chloride 10 MEQ TAB PO SCH (08:00)
[2020-09-19] MEDS ORDERED: Digoxin 0.125 MG TAB PO SCH (09:00)
[2020-09-19] MEDS: Cholecalciferol 1,000 UNITS (25 MCG) TAB PO SCH (10:17)
[2020-09-19] MEDS: Apixaban 5 MG TAB PO SCH ×2 (10:17→21:25)
[2020-09-19] MEDS: metroNIDAZOLE 500 MG TAB PO SCH ×3 (10:17→21:27)
[2020-09-19] MEDS: Saccharomyces boulardii 250 MG CAP PO SCH (10:17)
[2020-09-19] MEDS: Metoprolol Tartrate 25 MG TAB PO SCH ×2 (10:17→21:25)
[2020-09-19] MEDS: Famotidine 20 MG TAB PO SCH ×2 (10:18→21:25)
[2020-09-19] MEDS: Furosemide 20 MG TAB PO SCH ×2 (10:18→21:25)
[2020-09-19] MEDS: Pregabalin 75 MG CAP PO SCH ×3 (10:18→21:25)
[2020-09-19] MEDS: Alogliptin 25 MG TAB PO SCH (11:55)
[2020-09-19] MEDS: traMADol HCl 50 MG TAB PO PRN (12:01)
[2020-09-19 15:49] VITALS: BP 119/63; TEMP 97.9
== END 2020-09-19 21:33 | DRG 872 ==
LOC: ERS 12:03 → IMCU/EMU 15:44 → SURG A 09-14 11:07 → 2SE 09-15 03:24
PROVIDERS: ADMIT Internal Medicine; ATTEND Internal Medicine
PROC: 0T9B70Z Drainage of Bladder with Drainage Device, Via Natural or Artificial Opening (ICD-10-PCS; principal; 2020-09-15)
DX: A41.9 Sepsis, unspecified organism (principal); K57.20 Diverticulitis of large intestine with perforation and abscess without bleeding; E87.1 Hypo-osmolality and hyponatremia; N17.9 Acute kidney failure, unspecified; R65.20 Severe sepsis without septic shock; I48.91 Unspecified atrial fibrillation; E66.9 Obesity, unspecified; N18.2 Chronic kidney disease, stage 2 (mild); E87.6 Hypokalemia; R94.5 Abnormal results of liver function studies; K80.20 Calculus of gallbladder without cholecystitis without obstruction; E11.22 Type 2 diabetes mellitus with diabetic chronic kidney disease; I12.9 Hypertensive chronic kidney disease with stage 1 through stage 4 chronic kidney disease, or unspecified chronic kidney disease; G89.29 Other chronic pain; M54.9 Dorsalgia, unspecified; M19.90 Unspecified osteoarthritis, unspecified site; E78.5 Hyperlipidemia, unspecified; E86.1 Hypovolemia; Z96.641 Presence of right artificial hip joint; E89.0 Postprocedural hypothyroidism; K66.8 Other specified disorders of peritoneum; Z96.653 Presence of artificial knee joint, bilateral; R33.9 Retention of urine, unspecified; Z86.16 Personal history of COVID-19; Z79.899 Other long term (current) drug therapy; Z98.890 Other specified postprocedural states; Z68.36 Body mass index [BMI] 36.0-36.9, adult; Z79.01 Long term (current) use of anticoagulants; Z79.84 Long term (current) use of oral hypoglycemic drugs; Z82.49 Family history of ischemic heart disease and other diseases of the circulatory system
CPT/HCPCS: 36415; 36416; 71045; 74018; 74177; 80048; 80053; 80162; 81003; 81015; 82550; 83605; 83690; 83735; 84100; 84484; 85007; 85025; 85027; 85610; 85730; 86769; 93005; 93010; 96365; 96366; 96367; J0692; J1160; J1650; J1815; J2543; J3370; J3475; J3480; J3490; J7050; Q9967; S0028; U0003; U0005

== ENCOUNTER 2020-09-23 15:58 | Inpatient (IN) | payer MEDICARE ==
[2020-09-23] MEDS ORDERED: Vancomycin 1 GM/200 ML BAG ONE (16:24)
[2020-09-23] MEDS ORDERED: Piperacillin/Tazobactam 4.5 GM VIAL ONE (16:24)
[2020-09-23] MEDS ORDERED: Sodium Chloride 0.9% 100 ML ONE (16:24)
[2020-09-23 17:15] LABS: Mean Corpuscular HGB CONC 31.3 g/dL (32.0-36.0); Mean Corpuscular Hemoglobin 28.4 pg (27.0-31.0); Mean Corpuscular Volume 90.7 fL (78.0-98.0); Mean Platelet Volume 7.5 fL (7.4-10.4); Platelet Count 297 thou/uL (130-400); RBC Distribution Width 12.4 % (11.5-14.5); Red Blood Cell (RBC) Count 4.59 mill/uL (4.20-5.40); White Blood Cell (WBC) Count 17.6 thou/uL (4.8-10.8)
[2020-09-23 17:23] LABS: INR-International Normal Ratio 1.7; PTT 38.3 sec (22.9-36.1); Prothrombin Time 19.6 sec (12.0-14.7)
[2020-09-23 17:30] LABS: Band 7 % (5-11); Lymphocytes 10 % (21-51); MDiff Complete? YES; Monocytes 6 % (0-10); Myelocyte 2 % (0-0); Neutrophil 75 % (42-75); Platelet Morphology Comment Appears Adequate; RBC Morphology Normal
[2020-09-23 17:36] LABS: ALT (SGPT) 9 U/L (8-55); AST (SGOT) 16 U/L (5-34); Albumin 2.6 g/dL (3.4-4.8); Alkaline Phosphatase 63 U/L (40-110); Anion Gap 12 mmol/L (10-20); BUN (Urea Nitrogen) 12 mg/dL (9.8-20.1); Bilirubin, Total 0.4 mg/dL (0.2-1.2); Calc. Creatinine Clearance 0 mL/min (70-130); Calcium 9.3 mg/dL (7.8-10.44); Carbon Dioxide 29 mmol/L (23-31); Chloride 93 mmol/L (98-107); Globulin 2.7 g/dL (2.4-3.5); Glucose 143 mg/dL (80-115); Potassium 3.9 mmol/L (3.5-5.1); Protein, Total 5.3 g/dL (5.8-8.1); Sodium 130 mmol/L (136-145)
[2020-09-23] MEDS: Lactated Ringer's 1,000 ML IV SCH (20:22)
[2020-09-23] MEDS ORDERED: hydrALAZINE 20 MG/ML VIAL SLOW IVP PRN (22:30)
[2020-09-23] MEDS ORDERED: Morphine 2 MG/ML VIAL SLOW IVP PRN (22:30)
[2020-09-23] MEDS ORDERED: Acetaminophen 500 MG TAB PO PRN (22:33)
[2020-09-23] MEDS ORDERED: Dextrose 5% in Water 1,000 ML IV PRN (22:36)
[2020-09-23] MEDS ORDERED: Dextrose 50% Abboject 50 ML SYRINGE SLOW IVP PRN (22:36)
[2020-09-23] MEDS ORDERED: Piperacillin/Tazobactam 3.375 GM in Sodium Chloride 0.9% 100 ML IVPB SCH (23:00)
[2020-09-23] MEDS ORDERED: Famotidine/PF 20 mg/2ml Vial SLOW IVP SCH (23:15)
[2020-09-23] MEDS ORDERED: Metoprolol Tartrate 25 MG TAB PO SCH (23:15)
[2020-09-23] MEDS: Sodium Chloride 0.9% 1,000 ML IV SCH (23:39)
[2020-09-24] MEDS ORDERED: Piperacillin/Tazobactam 3.375 GM in Sodium Chloride 0.9% 100 ML IVPB SCH
[2020-09-24] MEDS: Lactated Ringer's 1,000 ML IV SCH (00:06)
[2020-09-24] MEDS ORDERED: Vancomycin 1 GM in Premix Bag 1 BAG IVPB SCH (01:00)
[2020-09-24] MEDS: Ondansetron PF 4 MG/2 ML Vial IVP PRN ×2 (02:54→10:20)
[2020-09-24] MEDS: Piperacillin/Tazobactam 3.375 GM in Sodium Chloride 0.9% 100 ML IVPB SCH ×3 (05:51→21:29)
[2020-09-24 06:38] LABS: #Basophils 0.1 thou/uL (0.0-0.2); #Eosinphils 0.1 thou/uL (0.0-0.7); #Lymphocytes 1.9 thou/uL (1.20-3.40); #Neutrophils 12.6 thou/uL (1.40-6.50); %Basophils 0.5 % (0.0-1.0); %Eosinophils 0.8 % (0.0-10.0); %Lymphocytes 12.3 % (21.0-51.0); %Monocytes 6.4 % (0.0-10.0); Hemoglobin 12.5 g/dL (12.0-16.0); Mean Corpuscular HGB CONC 32.2 g/dL (32.0-36.0); Mean Corpuscular Hemoglobin 29.3 pg (27.0-31.0); Mean Platelet Volume 7.3 fL (7.4-10.4); Platelet Count 288 thou/uL (130-400); RBC Distribution Width 12.4 % (11.5-14.5); Red Blood Cell (RBC) Count 4.25 mill/uL (4.20-5.40); White Blood Cell (WBC) Count 15.7 thou/uL (4.8-10.8)
[2020-09-24 07:02] LABS: ALT (SGPT) 7 U/L (8-55); AST (SGOT) 12 U/L (5-34); Albumin 2.4 g/dL (3.4-4.8); Alkaline Phosphatase 52 U/L (40-110); Anion Gap 13 mmol/L (10-20); BUN (Urea Nitrogen) 11 mg/dL (9.8-20.1); Bilirubin, Total 0.3 mg/dL (0.2-1.2); Calc. Creatinine Clearance 120 mL/min (70-130); Calcium 8.3 mg/dL (7.8-10.44); Carbon Dioxide 27 mmol/L (23-31); Chloride 96 mmol/L (98-107); Globulin 2.3 g/dL (2.4-3.5); Glucose 142 mg/dL (80-115); Potassium 3.6 mmol/L (3.5-5.1); Protein, Total 4.7 g/dL (5.8-8.1); Sodium 132 mmol/L (136-145)
[2020-09-24] MEDS: Sodium Chloride 0.9% 1,000 ML IV SCH ×2 (07:58→16:27)
[2020-09-24] MEDS: Metoprolol Tartrate 25 MG TAB PO SCH ×2 (07:59→21:29)
[2020-09-24] MEDS: Levothyroxine Sodium 100 MCG TAB PO SCH (07:59)
[2020-09-24] MEDS: Famotidine/PF 20 mg/2ml Vial SLOW IVP SCH ×2 (08:00→21:30)
[2020-09-24] MEDS: traMADol HCl 50 MG TAB PO PRN ×2 (10:29→16:25)
[2020-09-24] MEDS: HumaLOG 300 UNITS/3 ML VIAL SC PRN (11:46)
[2020-09-24] MEDS ORDERED: GoLYTELY 4,000 ml Bottle PO SCH (13:00)
[2020-09-25] MEDS: Sodium Chloride 0.9% 1,000 ML IV SCH ×2 (02:42→19:07)
[2020-09-25] MEDS: Piperacillin/Tazobactam 3.375 GM in Sodium Chloride 0.9% 100 ML IVPB SCH ×2 (05:43→19:07)
[2020-09-25 06:31] LABS: INR-International Normal Ratio 1.2; Prothrombin Time 15.6 sec (12.0-14.7)
[2020-09-25] MEDS: Metoprolol Tartrate 25 MG TAB PO SCH ×2 (06:37→23:09)
[2020-09-25] MEDS: traMADol HCl 50 MG TAB PO PRN (07:44)
[2020-09-25] MEDS ORDERED: Lactated Ringer's 1,000 ML IV SCH (08:00)
[2020-09-25] MEDS: Levothyroxine Sodium 100 MCG TAB PO SCH (09:06)
[2020-09-25] MEDS: Famotidine/PF 20 mg/2ml Vial SLOW IVP SCH ×2 (09:06→23:22)
[2020-09-25] MEDS ORDERED: Ropivacaine 0.5% HCl/PF (150 MG/30 ML VIAL) ONE ×3 (11:18→21:31)
[2020-09-25] MEDS ORDERED: Piperacillin/Tazobactam 3.375 GM VIAL ONE ×2 (14:13→23:14)
[2020-09-25] MEDS ORDERED: Sodium Chloride 0.9% 100 ML ONE ×2 (14:13→23:15)
[2020-09-25] MEDS ORDERED: Scopolamine 1.5 mg/72 hour Patch ONE (14:29)
[2020-09-25] MEDS ORDERED: Fentanyl 250 MCG/5 ML VIAL ONE (14:30)
[2020-09-25] MEDS ORDERED: Dexmedetomidine 200 MCG/2 ML VIAL ONE (18:11)
[2020-09-25] MEDS ORDERED: Fentanyl 100 MCG/2 ML VIAL ONE ×3 (18:11→23:23)
[2020-09-25] MEDS ORDERED: Sodium Chloride 0.9% 30 ML ONE (18:58)
[2020-09-25] MEDS ORDERED: Ondansetron PF 4 MG/2 ML Vial ONE (19:05)
[2020-09-25] MEDS ORDERED: Dexamethasone 20 MG/5 ML VIAL ONE (19:05)
[2020-09-25] MEDS ORDERED: Rocuronium Bromide 10 MG/ML (10ML VIAL) ONE (19:05)
[2020-09-25] MEDS ORDERED: PHENYLEPHRINE-NS 100 MCG/ML 10 ML SYRINGE ONE (19:05)
[2020-09-25] MEDS ORDERED: Lidocaine 1% PF 5 ML VIAL ONE (19:05)
[2020-09-25] MEDS ORDERED: ePHEDrine Sulfate 50 MG/10 ML VIAL ONE (19:05)
[2020-09-25] MEDS ORDERED: Esmolol 100 MG/10 ML VIAL ONE (19:05)
[2020-09-25] MEDS ORDERED: Metoprolol Tartrate 5 MG/5 ML VIAL ONE (19:05)
[2020-09-25] MEDS ORDERED: PROPOFOL 200 MG/20 ML VIAL ONE (19:05)
[2020-09-25] MEDS ORDERED: Phenylephrine 10 MG/ML VIAL ONE (20:03)
[2020-09-25] MEDS ORDERED: Albumin 5% 500 ML ONE ×2 (20:13→21:38)
[2020-09-25] MEDS ORDERED: Ropivacaine 0.2% HCl/PF 0 ML ONE ×2 (21:28→21:29)
[2020-09-25] MEDS ORDERED: Bupivacaine 0.25% HCL 30 ML VIAL ONE (21:43)
[2020-09-25] MEDS ORDERED: Morphine 4 MG/ML VIAL SLOW IVP PRN (22:05)
[2020-09-25] MEDS ORDERED: Sodium Chloride 0.9% 1,000 ML IV SCH (22:15)
[2020-09-25] MEDS ORDERED: diphenhydrAMINE 50 MG/ML VIAL IVP PRN (22:30)
[2020-09-25] MEDS ORDERED: Promethazine HCl 25 MG/ML VIAL IM PRN ×2 (22:30)
[2020-09-25] MEDS ORDERED: Ondansetron PF 4 MG/2 ML Vial IVP PRN (22:30)
[2020-09-25] MEDS ORDERED: Naloxone HCl 0.4 mg/ml Vial IV PRN (22:30)
[2020-09-25] MEDS ORDERED: Communication Order-Pharmacy FS SCH (22:30)
[2020-09-25] MEDS ORDERED: fentaNYL Citrate/PF 2,000 MCG in Sodium Chloride 0.9% 60 ML IV PRN (22:30)
[2020-09-25] MEDS ORDERED: Ondansetron HCl/PF 4 MG/2 ML Vial IVP PRN (22:30)
[2020-09-25] MEDS ORDERED: Promethazine HCl 25 MG/ML VIAL IVPB PRN (22:30)
[2020-09-25] MEDS ORDERED: diphenhydrAMINE 50 MG/ML VIAL IM PRN (22:30)
[2020-09-25] MEDS ORDERED: Zolpidem Tartrate 5 MG TAB PO PRN (22:30)
[2020-09-25 22:56] LABS: Hemoglobin 9.7 g/dL (12.0-16.0); Mean Corpuscular HGB CONC 33.1 g/dL (32.0-36.0); Mean Corpuscular Hemoglobin 30.4 pg (27.0-31.0); Mean Corpuscular Volume 91.8 fL (78.0-98.0); Platelet Count 248 thou/uL (130-400); RBC Distribution Width 12.2 % (11.5-14.5); Red Blood Cell (RBC) Count 3.18 mill/uL (4.20-5.40)
[2020-09-25] MEDS ORDERED: Famotidine/PF 20 mg/2ml Vial ONE (23:16)
[2020-09-25] MEDS: Albumin 25% 25 GM/100 ML BOT IVPB SCH (23:45)
[2020-09-26] MEDS ORDERED: Fentanyl 100 MCG/2 ML VIAL ONE ×2 (00:03→03:24)
[2020-09-26] MEDS ORDERED: Promethazine HCl 25 MG/ML VIAL ONE (00:07)
[2020-09-26] MEDS: Sodium Chloride 0.9% 1,000 ML IV SCH ×4 (00:10→18:10)
[2020-09-26] MEDS: Piperacillin/Tazobactam 3.375 GM in Sodium Chloride 0.9% 100 ML IVPB SCH ×4 (00:10→22:13)
[2020-09-26] MEDS ORDERED: Albumin 25% 100 ML ONE (05:08)
[2020-09-26] MEDS ORDERED: Piperacillin/Tazobactam 3.375 GM VIAL ONE ×2 (05:10→09:12)
[2020-09-26] MEDS ORDERED: Sodium Chloride 0.9% 100 ML ONE ×2 (05:11→09:12)
[2020-09-26] MEDS: Albumin 25% 25 GM/100 ML BOT IVPB SCH ×3 (05:31→18:10)
[2020-09-26 08:37] LABS: #Eosinphils 0.2 thou/uL (0.0-0.7); #Monocytes 0.8 thou/uL (0.11-0.59); #Neutrophils 14.9 thou/uL (1.40-6.50); %Basophils 0.1 % (0.0-1.0); %Eosinophils 1.2 % (0.0-10.0); %Monocytes 4.4 % (0.0-10.0); %Neutrophils 88.3 % (42.0-75.0); Hemoglobin 8.5 g/dL (12.0-16.0); Mean Corpuscular HGB CONC 31.7 g/dL (32.0-36.0); Mean Corpuscular Hemoglobin 29.6 pg (27.0-31.0); Mean Corpuscular Volume 93.5 fL (78.0-98.0); Mean Platelet Volume 7.3 fL (7.4-10.4); Platelet Count 243 thou/uL (130-400); RBC Distribution Width 12.3 % (11.5-14.5); Red Blood Cell (RBC) Count 2.86 mill/uL (4.20-5.40); White Blood Cell (WBC) Count 16.9 thou/uL (4.8-10.8)
[2020-09-26 08:44] LABS: ALT (SGPT) Less than 7 U/L (8-55); AST (SGOT) 10 U/L (5-34); Albumin 2.9 g/dL (3.4-4.8); Alkaline Phosphatase 21 U/L (40-110); Anion Gap 17 mmol/L (10-20); BUN (Urea Nitrogen) 7 mg/dL (9.8-20.1); Bilirubin, Total 0.4 mg/dL (0.2-1.2); Calc. Creatinine Clearance 137 mL/min (70-130); Calcium 6.5 mg/dL (7.8-10.44); Carbon Dioxide 17 mmol/L (23-31); Chloride 107 mmol/L (98-107); Globulin 1.3 g/dL (2.4-3.5); Glucose 203 mg/dL (80-115); Magnesium 1.3 mg/dL (1.6-2.6); Potassium 3.7 mmol/L (3.5-5.1); Protein, Total 4.2 g/dL (5.8-8.1); Sodium 137 mmol/L (136-145)
[2020-09-26 09:01] LABS: INR-International Normal Ratio 1.5; PTT 30.9 sec (22.9-36.1); Prothrombin Time 17.8 sec (12.0-14.7)
[2020-09-26] MEDS ORDERED: Famotidine/PF 20 mg/2ml Vial ONE (09:13)
[2020-09-26] MEDS ORDERED: Ketorolac Tromethamine 30 MG/ML VIAL ONE (09:16)
[2020-09-26] MEDS: Ketorolac Tromethamine 30 MG/ML VIAL IVP PRN ×3 (09:18→21:27)
[2020-09-26] MEDS: Famotidine/PF 20 mg/2ml Vial SLOW IVP SCH ×2 (09:19→22:13)
[2020-09-26] MEDS: Levothyroxine Sodium 100 MCG TAB PO SCH (10:26)
[2020-09-26] MEDS: Metoprolol Tartrate 25 MG TAB PO SCH ×2 (10:27→22:49)
[2020-09-26 15:24] LABS: #Eosinphils 0.1 thou/uL (0.0-0.7); #Lymphocytes 1.6 thou/uL (1.20-3.40); #Monocytes 1.1 thou/uL (0.11-0.59); #Neutrophils 15.1 thou/uL (1.40-6.50); %Basophils 0.2 % (0.0-1.0); %Eosinophils 0.4 % (0.0-10.0); %Lymphocytes 8.9 % (21.0-51.0); %Neutrophils 84.7 % (42.0-75.0); Hemoglobin 8.1 g/dL (12.0-16.0); Mean Corpuscular HGB CONC 33.4 g/dL (32.0-36.0); Mean Corpuscular Hemoglobin 30.7 pg (27.0-31.0); Mean Corpuscular Volume 91.8 fL (78.0-98.0); Mean Platelet Volume 7.3 fL (7.4-10.4); Platelet Count 221 thou/uL (130-400); RBC Distribution Width 12.4 % (11.5-14.5); Red Blood Cell (RBC) Count 2.65 mill/uL (4.20-5.40); White Blood Cell (WBC) Count 17.8 thou/uL (4.8-10.8)
[2020-09-26] MEDS: HumaLOG 300 UNITS/3 ML VIAL SC PRN (18:17)
[2020-09-26] MEDS: Enoxaparin Sodium 40 MG/0.4 ML SYRINGE SC SCH (22:13)
[2020-09-26] MEDS ORDERED: Sodium Chloride 0.9% 1,000 ML IV SCH (23:00)
[2020-09-27] MEDS: Albumin 25% 25 GM/100 ML BOT IVPB SCH (00:45)
[2020-09-27 03:53] LABS: #Eosinphils 0.1 thou/uL (0.0-0.7); #Lymphocytes 1.5 thou/uL (1.20-3.40); #Monocytes 0.9 thou/uL (0.11-0.59); #Neutrophils 12.7 thou/uL (1.40-6.50); %Basophils 0.2 % (0.0-1.0); %Eosinophils 0.5 % (0.0-10.0); %Monocytes 6.1 % (0.0-10.0); %Neutrophils 83.2 % (42.0-75.0); Hemoglobin 7.5 g/dL (12.0-16.0); Mean Corpuscular Hemoglobin 31.1 pg (27.0-31.0); Mean Corpuscular Volume 91.5 fL (78.0-98.0); Mean Platelet Volume 7.2 fL (7.4-10.4); Platelet Count 198 thou/uL (130-400); RBC Distribution Width 12.5 % (11.5-14.5); White Blood Cell (WBC) Count 15.2 thou/uL (4.8-10.8)
[2020-09-27 04:16] LABS: ALT (SGPT) Less than 7 U/L (8-55); AST (SGOT) 16 U/L (5-34); Albumin 3.2 g/dL (3.4-4.8); Alkaline Phosphatase 23 U/L (40-110); Anion Gap 13 mmol/L (10-20); BUN (Urea Nitrogen) 9 mg/dL (9.8-20.1); Bilirubin, Total 0.4 mg/dL (0.2-1.2); Calc. Creatinine Clearance 135 mL/min (70-130); Calcium 6.5 mg/dL (7.8-10.44); Carbon Dioxide 20 mmol/L (23-31); Chloride 110 mmol/L (98-107); Globulin 1.3 g/dL (2.4-3.5); Glucose 157 mg/dL (80-115); Potassium 3.3 mmol/L (3.5-5.1); Protein, Total 4.5 g/dL (5.8-8.1); Sodium 140 mmol/L (136-145)
[2020-09-27] MEDS: Piperacillin/Tazobactam 3.375 GM in Sodium Chloride 0.9% 100 ML IVPB SCH ×3 (06:26→21:05)
[2020-09-27] MEDS: HumaLOG 300 UNITS/3 ML VIAL SC PRN ×2 (06:34→18:24)
[2020-09-27] MEDS: Sodium Chloride 0.9% 1,000 ML IV SCH ×4 (08:10→21:08)
[2020-09-27] MEDS ORDERED: Magnesium Sulfate 3 GM in Sodium Chloride 0.9% 100 ML IVPB SCH (09:00)
[2020-09-27] MEDS ORDERED: Potassium Chloride 40 MEQ in Premix Bag 1 BAG IVPB SCH (09:00)
[2020-09-27] MEDS: Famotidine/PF 20 mg/2ml Vial SLOW IVP SCH ×2 (09:50→21:05)
[2020-09-27] MEDS: Levothyroxine Sodium 100 MCG TAB PO SCH (10:37)
[2020-09-27] MEDS: Metoprolol Tartrate 25 MG TAB PO SCH (11:04)
[2020-09-27] MEDS ORDERED: Metoprolol Tartrate 50 MG TAB PO SCH (11:15)
[2020-09-27 17:44] LABS: Anion Gap 12 mmol/L (10-20); BUN (Urea Nitrogen) 9 mg/dL (9.8-20.1); Calc. Creatinine Clearance 147 mL/min (70-130); Calcium 6.6 mg/dL (7.8-10.44); Carbon Dioxide 21 mmol/L (23-31); Chloride 111 mmol/L (98-107); Glucose 184 mg/dL (80-115); Potassium 3.7 mmol/L (3.5-5.1); Sodium 140 mmol/L (136-145)
[2020-09-27] MEDS: Acetaminophen 500 MG TAB PO SCH ×2 (18:22→23:18)
[2020-09-27] MEDS: diphenhydrAMINE 25 MG CAP PO PRN (21:05)
[2020-09-27] MEDS: Enoxaparin Sodium 40 MG/0.4 ML SYRINGE SC SCH (23:18)
[2020-09-28] MEDS: diphenhydrAMINE 25 MG CAP PO PRN ×3 (01:00→21:16)
[2020-09-28] MEDS: Sodium Chloride 0.9% 1,000 ML IV SCH ×3 (04:45→17:58)
[2020-09-28 04:53] LABS: #Eosinphils 0.1 thou/uL (0.0-0.7); #Lymphocytes 1.7 thou/uL (1.20-3.40); #Monocytes 0.8 thou/uL (0.11-0.59); #Neutrophils 8.8 thou/uL (1.40-6.50); %Basophils 0.4 % (0.0-1.0); %Eosinophils 0.7 % (0.0-10.0); %Lymphocytes 14.7 % (21.0-51.0); %Monocytes 7.2 % (0.0-10.0); Hemoglobin 7.4 g/dL (12.0-16.0); Mean Corpuscular HGB CONC 34.1 g/dL (32.0-36.0); Mean Corpuscular Hemoglobin 31.5 pg (27.0-31.0); Mean Corpuscular Volume 92.3 fL (78.0-98.0); Mean Platelet Volume 7.4 fL (7.4-10.4); Platelet Count 201 thou/uL (130-400); RBC Distribution Width 12.7 % (11.5-14.5); Red Blood Cell (RBC) Count 2.34 mill/uL (4.20-5.40); White Blood Cell (WBC) Count 11.4 thou/uL (4.8-10.8)
[2020-09-28 05:22] LABS: ALT (SGPT) Less than 7 U/L (8-55); AST (SGOT) 10 U/L (5-34); Albumin 2.6 g/dL (3.4-4.8); Alkaline Phosphatase 30 U/L (40-110); Anion Gap 8 mmol/L (10-20); BUN (Urea Nitrogen) 9 mg/dL (9.8-20.1); Bilirubin, Total 0.3 mg/dL (0.2-1.2); Calc. Creatinine Clearance 161 mL/min (70-130); Calcium 6.7 mg/dL (7.8-10.44); Carbon Dioxide 23 mmol/L (23-31); Chloride 112 mmol/L (98-107); Globulin 1.6 g/dL (2.4-3.5); Glucose 141 mg/dL (80-115); Magnesium 1.8 mg/dL (1.6-2.6); Potassium 3.2 mmol/L (3.5-5.1); Protein, Total 4.2 g/dL (5.8-8.1); Sodium 140 mmol/L (136-145)
[2020-09-28] MEDS: Acetaminophen 500 MG TAB PO SCH ×3 (05:40→17:51)
[2020-09-28] MEDS: Ketorolac Tromethamine 30 MG/ML VIAL IVP PRN ×2 (05:41→15:56)
[2020-09-28] MEDS: Piperacillin/Tazobactam 3.375 GM in Sodium Chloride 0.9% 100 ML IVPB SCH ×3 (05:41→21:10)
[2020-09-28] MEDS ORDERED: Levothyroxine Sodium 100 MCG TAB PO SCH (07:45)
[2020-09-28] MEDS: Levothyroxine Sodium 100 MCG TAB PO SCH (07:48)
[2020-09-28] MEDS: Pioglitazone HCl 45 MG TAB PO SCH (09:24)
[2020-09-28] MEDS: Famotidine/PF 20 mg/2ml Vial SLOW IVP SCH ×2 (09:25→21:14)
[2020-09-28] MEDS: Metoprolol Tartrate 50 MG TAB PO SCH (09:25)
[2020-09-28] MEDS: Triamterene/Hydrochlorothiazide 37.5 mg/25 mg Tablet PO SCH (09:33)
[2020-09-28] MEDS: Alogliptin 25 MG TAB PO SCH (09:59)
[2020-09-28] MEDS ORDERED: Electrolyte Replacement Protocol 1 EACH FS SCH (10:00)
[2020-09-28] MEDS ORDERED: Electrolyte Replacement Protocol FS PRN (10:15)
[2020-09-28] MEDS ORDERED: Potassium Chloride 20 MEQ TAB PO SCH (11:15)
[2020-09-28] MEDS ORDERED: Magnesium 2 GM/50 ML 2 GM in Premix Bag 1 BAG IVPB SCH (11:15)
[2020-09-28] MEDS: traMADol HCl 50 MG TAB PO PRN ×2 (11:20→21:15)
[2020-09-28] MEDS: Enoxaparin Sodium 40 MG/0.4 ML SYRINGE SC SCH (21:13)
[2020-09-29] MEDS: Acetaminophen 500 MG TAB PO SCH ×4 (00:27→17:20)
[2020-09-29] MEDS: Levothyroxine Sodium 100 MCG TAB PO SCH (04:47)
[2020-09-29] MEDS: Piperacillin/Tazobactam 3.375 GM in Sodium Chloride 0.9% 100 ML IVPB SCH ×3 (04:47→22:16)
[2020-09-29] MEDS: traMADol HCl 50 MG TAB PO PRN ×2 (04:48→11:04)
[2020-09-29] MEDS: Sodium Chloride 0.9% 1,000 ML IV SCH ×5 (04:48→23:04)
[2020-09-29 06:29] LABS: #Basophils 0.1 thou/uL (0.0-0.2); #Eosinphils 0.1 thou/uL (0.0-0.7); #Lymphocytes 1.9 thou/uL (1.20-3.40); #Monocytes 0.7 thou/uL (0.11-0.59); #Neutrophils 11.7 thou/uL (1.40-6.50); %Basophils 0.6 % (0.0-1.0); %Eosinophils 0.9 % (0.0-10.0); %Lymphocytes 13.1 % (21.0-51.0); %Monocytes 4.7 % (0.0-10.0); %Neutrophils 80.7 % (42.0-75.0); Hemoglobin 8.5 g/dL (12.0-16.0); Mean Corpuscular Hemoglobin 30.5 pg (27.0-31.0); Mean Corpuscular Volume 92.4 fL (78.0-98.0); Mean Platelet Volume 7.6 fL (7.4-10.4); Platelet Count 290 thou/uL (130-400); RBC Distribution Width 12.7 % (11.5-14.5); Red Blood Cell (RBC) Count 2.77 mill/uL (4.20-5.40); White Blood Cell (WBC) Count 14.5 thou/uL (4.8-10.8)
[2020-09-29 06:56] LABS: Anion Gap 11 mmol/L (10-20); BUN (Urea Nitrogen) 9 mg/dL (9.8-20.1); Calc. Creatinine Clearance 153 mL/min (70-130); Calcium 7.2 mg/dL (7.8-10.44); Carbon Dioxide 21 mmol/L (23-31); Chloride 111 mmol/L (98-107); Glucose 140 mg/dL (80-115); Magnesium 2.2 mg/dL (1.6-2.6); Potassium 3.7 mmol/L (3.5-5.1); Sodium 139 mmol/L (136-145)
[2020-09-29] MEDS ORDERED: Potassium Phosphate 30 MMOL in Sodium Chloride 0.9% 250 ML 250 ML IVPB SCH (07:45)
[2020-09-29] MEDS: Triamterene/Hydrochlorothiazide 37.5 mg/25 mg Tablet PO SCH (08:35)
[2020-09-29] MEDS: Pioglitazone HCl 45 MG TAB PO SCH (08:35)
[2020-09-29] MEDS: Famotidine/PF 20 mg/2ml Vial SLOW IVP SCH ×2 (08:36→21:04)
[2020-09-29] MEDS: Metoprolol Tartrate 50 MG TAB PO SCH (08:36)
[2020-09-29] MEDS: Ketorolac Tromethamine 30 MG/ML VIAL IVP PRN ×2 (09:11→21:04)
[2020-09-29] MEDS: Alogliptin 25 MG TAB PO SCH (09:12)
[2020-09-29] MEDS: HumaLOG 300 UNITS/3 ML VIAL SC PRN (12:21)
[2020-09-29] MEDS ORDERED: Furosemide 40 MG/4 ML VIAL IVP SCH ×2 (17:45)
[2020-09-29] MEDS ORDERED: Metoprolol Tartrate 25 MG TAB PO SCH (21:00)
[2020-09-29] MEDS: Enoxaparin Sodium 40 MG/0.4 ML SYRINGE SC SCH (21:05)
[2020-09-30] MEDS: Acetaminophen 500 MG TAB PO SCH ×5 (00:08→23:49)
[2020-09-30] MEDS: traMADol HCl 50 MG TAB PO PRN ×3 (00:09→20:08)
[2020-09-30] MEDS: Levothyroxine Sodium 100 MCG TAB PO SCH (05:41)
[2020-09-30] MEDS: Piperacillin/Tazobactam 3.375 GM in Sodium Chloride 0.9% 100 ML IVPB SCH ×3 (05:44→22:13)
[2020-09-30] MEDS: Alogliptin 25 MG TAB PO SCH (09:15)
[2020-09-30] MEDS: Triamterene/Hydrochlorothiazide 37.5 mg/25 mg Tablet PO SCH (09:52)
[2020-09-30] MEDS: Pioglitazone HCl 45 MG TAB PO SCH (09:52)
[2020-09-30] MEDS: Famotidine/PF 20 mg/2ml Vial SLOW IVP SCH ×2 (09:53→20:10)
[2020-09-30] MEDS: Metoprolol Tartrate 50 MG TAB PO SCH (09:53)
[2020-09-30 10:45] LABS: #Basophils 0.1 thou/uL (0.0-0.2); #Eosinphils 0.2 thou/uL (0.0-0.7); #Lymphocytes 2.3 thou/uL (1.20-3.40); #Monocytes 0.7 thou/uL (0.11-0.59); #Neutrophils 12.7 thou/uL (1.40-6.50); %Basophils 0.8 % (0.0-1.0); %Lymphocytes 14.3 % (21.0-51.0); %Monocytes 4.5 % (0.0-10.0); %Neutrophils 79.3 % (42.0-75.0); Hemoglobin 9.1 g/dL (12.0-16.0); Mean Corpuscular HGB CONC 34.5 g/dL (32.0-36.0); Mean Corpuscular Hemoglobin 31.5 pg (27.0-31.0); Mean Corpuscular Volume 91.4 fL (78.0-98.0); Mean Platelet Volume 6.9 fL (7.4-10.4); Platelet Count 351 thou/uL (130-400); RBC Distribution Width 13.1 % (11.5-14.5)
[2020-09-30 11:24] LABS: Anion Gap 11 mmol/L (10-20); BUN (Urea Nitrogen) 10 mg/dL (9.8-20.1); Calc. Creatinine Clearance 135 mL/min (70-130); Calcium 7.5 mg/dL (7.8-10.44); Carbon Dioxide 23 mmol/L (23-31); Chloride 110 mmol/L (98-107); Glucose 168 mg/dL (80-115); Phosphorus 2.4 mg/dL (2.3-4.7); Potassium 4.6 mmol/L (3.5-5.1); Sodium 139 mmol/L (136-145)
[2020-09-30] MEDS: Sodium Chloride 0.9% 1,000 ML IV SCH (12:35)
[2020-09-30] MEDS ORDERED: Magnesium 2 GM/50 ML 2 GM in Premix Bag 1 BAG IVPB SCH (12:45)
[2020-09-30] MEDS: Furosemide 20 MG TAB PO SCH (20:09)
[2020-09-30] MEDS: Metoprolol Tartrate 25 MG TAB PO SCH (20:10)
[2020-09-30] MEDS: Apixaban 5 MG TAB PO SCH (20:10)
[2020-09-30] MEDS: diphenhydrAMINE 25 MG CAP PO PRN (20:10)
[2020-10-01 05:50] LABS: Anion Gap 12 mmol/L (10-20); BUN (Urea Nitrogen) 9 mg/dL (9.8-20.1); Calc. Creatinine Clearance 128 mL/min (70-130); Calcium 7.7 mg/dL (7.8-10.44); Carbon Dioxide 22 mmol/L (23-31); Chloride 107 mmol/L (98-107); Glucose 149 mg/dL (80-115); Mean Corpuscular Hemoglobin 28.4 pg (27.0-31.0); Mean Corpuscular Volume 91.8 fL (78.0-98.0); Mean Platelet Volume 7.2 fL (7.4-10.4); Phosphorus 2.3 mg/dL (2.3-4.7); Platelet Count 430 thou/uL (130-400); Potassium 4.3 mmol/L (3.5-5.1); RBC Distribution Width 13.2 % (11.5-14.5); Red Blood Cell (RBC) Count 3.18 mill/uL (4.20-5.40); Sodium 137 mmol/L (136-145); White Blood Cell (WBC) Count 15.7 thou/uL (4.8-10.8)
[2020-10-01] MEDS ORDERED: Magnesium 2 GM/50 ML 2 GM in Premix Bag 1 BAG IVPB SCH (06:15)
[2020-10-01 06:22] LABS: Band 3 % (5-11); Lymphocytes 24 % (21-51); MDiff Complete? YES; Monocytes 6 % (0-10); Neutrophil 66 % (42-75); Nucleated RBC 1 % (0)
[2020-10-01] MEDS: Acetaminophen 500 MG TAB PO SCH ×3 (06:32→16:53)
[2020-10-01] MEDS: Levothyroxine Sodium 100 MCG TAB PO SCH (06:32)
[2020-10-01] MEDS: Piperacillin/Tazobactam 3.375 GM in Sodium Chloride 0.9% 100 ML IVPB SCH (06:35)
[2020-10-01] MEDS: Pioglitazone HCl 45 MG TAB PO SCH (09:10)
[2020-10-01] MEDS: Famotidine/PF 20 mg/2ml Vial SLOW IVP SCH ×2 (09:10→20:50)
[2020-10-01] MEDS: Apixaban 5 MG TAB PO SCH ×2 (09:10→20:49)
[2020-10-01] MEDS: Alogliptin 25 MG TAB PO SCH (09:10)
[2020-10-01] MEDS: Triamterene/Hydrochlorothiazide 37.5 mg/25 mg Tablet PO SCH (09:10)
[2020-10-01] MEDS: Furosemide 20 MG TAB PO SCH ×2 (09:10→20:49)
[2020-10-01] MEDS ORDERED: Furosemide 20 MG/2 ML VIAL SLOW IVP SCH (10:15)
[2020-10-01] MEDS: traMADol HCl 50 MG TAB PO PRN ×2 (10:52→20:49)
[2020-10-01] MEDS: Metoprolol Tartrate 25 MG TAB PO SCH (20:49)
[2020-10-01] MEDS: diphenhydrAMINE 25 MG CAP PO PRN (20:49)
[2020-10-02] MEDS: Acetaminophen 500 MG TAB PO SCH ×4 (03:33→17:43)
[2020-10-02] MEDS: Levothyroxine Sodium 100 MCG TAB PO SCH (05:54)
[2020-10-02] MEDS: Famotidine/PF 20 mg/2ml Vial SLOW IVP SCH ×2 (09:08→20:45)
[2020-10-02] MEDS: traMADol HCl 50 MG TAB PO PRN ×3 (09:08→22:46)
[2020-10-02] MEDS: Furosemide 20 MG TAB PO SCH ×2 (09:08→20:45)
[2020-10-02] MEDS: Triamterene/Hydrochlorothiazide 37.5 mg/25 mg Tablet PO SCH (09:08)
[2020-10-02] MEDS: Apixaban 5 MG TAB PO SCH ×2 (09:08→20:44)
[2020-10-02] MEDS: Pioglitazone HCl 45 MG TAB PO SCH (09:08)
[2020-10-02] MEDS: Alogliptin 25 MG TAB PO SCH (09:11)
[2020-10-02] MEDS: Fentanyl 100 MCG/2 ML VIAL SLOW IVP PRN (11:22)
[2020-10-02] MEDS: diphenhydrAMINE 25 MG CAP PO PRN ×2 (11:31→21:29)
[2020-10-02] MEDS: HumaLOG 300 UNITS/3 ML VIAL SC PRN (12:03)
[2020-10-02] MEDS: Metoprolol Tartrate 25 MG TAB PO SCH (20:44)
[2020-10-03] MEDS: diphenhydrAMINE 25 MG CAP PO PRN ×4 (00:55→23:51)
[2020-10-03] MEDS: Acetaminophen 500 MG TAB PO SCH ×5 (00:55→23:49)
[2020-10-03] MEDS: traMADol HCl 50 MG TAB PO PRN ×3 (05:00→20:12)
[2020-10-03] MEDS: Levothyroxine Sodium 100 MCG TAB PO SCH (05:01)
[2020-10-03] MEDS: HumaLOG 300 UNITS/3 ML VIAL SC PRN ×2 (05:26→16:41)
[2020-10-03] MEDS: Famotidine/PF 20 mg/2ml Vial SLOW IVP SCH ×2 (09:23→19:59)
[2020-10-03] MEDS: Triamterene/Hydrochlorothiazide 37.5 mg/25 mg Tablet PO SCH (09:23)
[2020-10-03] MEDS: Alogliptin 25 MG TAB PO SCH (09:23)
[2020-10-03] MEDS: Pioglitazone HCl 45 MG TAB PO SCH (09:23)
[2020-10-03] MEDS: Apixaban 5 MG TAB PO SCH ×2 (09:23→20:14)
[2020-10-03] MEDS: Furosemide 20 MG TAB PO SCH ×2 (09:23→20:00)
[2020-10-03] MEDS: Metoprolol Tartrate 25 MG TAB PO SCH (20:00)
[2020-10-04] MEDS: Acetaminophen 500 MG TAB PO SCH ×4 (05:54→23:47)
[2020-10-04] MEDS: Levothyroxine Sodium 100 MCG TAB PO SCH (05:55)
[2020-10-04 06:32] VITALS: BMI 40.3
[2020-10-04] MEDS: Famotidine/PF 20 mg/2ml Vial SLOW IVP SCH (08:53)
[2020-10-04] MEDS: Alogliptin 25 MG TAB PO SCH (08:53)
[2020-10-04] MEDS: Triamterene/Hydrochlorothiazide 37.5 mg/25 mg Tablet PO SCH (08:53)
[2020-10-04] MEDS: Pioglitazone HCl 45 MG TAB PO SCH (08:53)
[2020-10-04] MEDS: Furosemide 20 MG TAB PO SCH ×2 (08:54→20:52)
[2020-10-04] MEDS: traMADol HCl 50 MG TAB PO PRN (08:56)
[2020-10-04] MEDS: Apixaban 5 MG TAB PO SCH ×2 (08:56→20:52)
[2020-10-04] MEDS ORDERED: Metoprolol Tartrate 25 MG TAB PO SCH (09:00)
[2020-10-04] MEDS: Fentanyl 100 MCG/2 ML VIAL SLOW IVP PRN (10:30)
[2020-10-04] MEDS: diphenhydrAMINE 25 MG CAP PO PRN ×2 (11:03→18:55)
[2020-10-04] MEDS: Metoprolol Tartrate 25 MG TAB PO SCH (20:52)
[2020-10-04] MEDS: HumaLOG 300 UNITS/3 ML VIAL SC PRN (20:56)
[2020-10-05] MEDS: Acetaminophen 500 MG TAB PO SCH ×4 (05:41→23:14)
[2020-10-05] MEDS: Levothyroxine Sodium 100 MCG TAB PO SCH (05:42)
[2020-10-05] MEDS ORDERED: Metoprolol Tartrate 50 MG TAB PO SCH (09:00)
[2020-10-05 09:59] LABS: #Basophils 0.1 thou/uL (0.0-0.2); #Eosinphils 0.2 thou/uL (0.0-0.7); #Lymphocytes 2.3 thou/uL (1.20-3.40); %Basophils 0.5 % (0.0-1.0); %Eosinophils 1.3 % (0.0-10.0); %Monocytes 7.3 % (0.0-10.0); Hemoglobin 9.7 g/dL (12.0-16.0); Mean Corpuscular Hemoglobin 31.2 pg (27.0-31.0); Mean Corpuscular Volume 91.7 fL (78.0-98.0); Mean Platelet Volume 7.4 fL (7.4-10.4); Platelet Count 395 thou/uL (130-400); RBC Distribution Width 15.2 % (11.5-14.5); Red Blood Cell (RBC) Count 3.12 mill/uL (4.20-5.40); White Blood Cell (WBC) Count 13.5 thou/uL (4.8-10.8)
[2020-10-05 10:17] LABS: Anion Gap 11 mmol/L (10-20); BUN (Urea Nitrogen) 9 mg/dL (9.8-20.1); Calc. Creatinine Clearance 109 mL/min (70-130); Calcium 8.4 mg/dL (7.8-10.44); Carbon Dioxide 33 mmol/L (23-31); Chloride 93 mmol/L (98-107); Glucose 161 mg/dL (80-115); Potassium 3.8 mmol/L (3.5-5.1); Sodium 133 mmol/L (136-145)
[2020-10-05] MEDS: Digoxin 0.25 MG TAB PO SCH (10:37)
[2020-10-05] MEDS: Apixaban 5 MG TAB PO SCH ×2 (10:38→20:31)
[2020-10-05] MEDS: Furosemide 20 MG TAB PO SCH ×2 (10:38→20:31)
[2020-10-05] MEDS: Pioglitazone HCl 45 MG TAB PO SCH (10:38)
[2020-10-05] MEDS: Triamterene/Hydrochlorothiazide 37.5 mg/25 mg Tablet PO SCH (10:38)
[2020-10-05] MEDS: Alogliptin 25 MG TAB PO SCH (10:39)
[2020-10-05] MEDS: HumaLOG 300 UNITS/3 ML VIAL SC PRN (18:24)
[2020-10-06] MEDS: Acetaminophen 500 MG TAB PO SCH ×4 (05:11→23:06)
[2020-10-06] MEDS: Levothyroxine Sodium 100 MCG TAB PO SCH (05:11)
[2020-10-06] MEDS: Triamterene/Hydrochlorothiazide 37.5 mg/25 mg Tablet PO SCH (08:59)
[2020-10-06] MEDS: Apixaban 5 MG TAB PO SCH ×2 (08:59→20:06)
[2020-10-06] MEDS: Digoxin 0.25 MG TAB PO SCH (08:59)
[2020-10-06] MEDS: Pioglitazone HCl 45 MG TAB PO SCH (09:00)
[2020-10-06] MEDS: Furosemide 20 MG TAB PO SCH ×2 (09:00→20:06)
[2020-10-06] MEDS: Alogliptin 25 MG TAB PO SCH (09:03)
[2020-10-06] MEDS: traMADol HCl 50 MG TAB PO PRN (12:17)
[2020-10-06] MEDS: HumaLOG 300 UNITS/3 ML VIAL SC PRN (17:29)
[2020-10-06] MEDS: diphenhydrAMINE 50 MG CAP PO PRN (21:53)
[2020-10-07] MEDS: traMADol HCl 50 MG TAB PO PRN ×2 (01:49→12:08)
[2020-10-07] MEDS: diphenhydrAMINE 50 MG CAP PO PRN ×2 (06:07→12:08)
[2020-10-07] MEDS: Levothyroxine Sodium 100 MCG TAB PO SCH (06:07)
[2020-10-07] MEDS: Acetaminophen 500 MG TAB PO SCH ×2 (06:07→12:09)
[2020-10-07] MEDS: Triamterene/Hydrochlorothiazide 37.5 mg/25 mg Tablet PO SCH (08:59)
[2020-10-07] MEDS: Pioglitazone HCl 45 MG TAB PO SCH (08:59)
[2020-10-07] MEDS: Alogliptin 25 MG TAB PO SCH (09:00)
[2020-10-07] MEDS: Apixaban 5 MG TAB PO SCH (09:00)
[2020-10-07] MEDS: Furosemide 20 MG TAB PO SCH (09:00)
[2020-10-07] MEDS: Digoxin 0.25 MG TAB PO SCH (09:00)
[2020-10-07 12:34] VITALS: BP 104/70; TEMP 98
[2020-10-09] MEDS ORDERED: Digoxin 0.125 MG TAB PO SCH (09:00)
== END 2020-10-07 15:40 | DRG 330 ==
LOC: ERS 15:58 → T4-A 16:45 → SURG A 09-25 22:27 → SJJU 09-26 11:34 → CCU 09-26 23:37 → SURG B 09-28 16:23
PROVIDERS: ADMIT Specialist; ATTEND Specialist
PROC: 0DBN0ZZ Excision of Sigmoid Colon, Open Approach (ICD-10-PCS; principal; 2020-09-25)
PROC: 0DB80ZZ Excision of Small Intestine, Open Approach (ICD-10-PCS; 2020-09-25)
PROC: 0DTJ0ZZ Resection of Appendix, Open Approach (ICD-10-PCS; 2020-09-25)
PROC: 0D1N0Z4 Bypass Sigmoid Colon to Cutaneous, Open Approach (ICD-10-PCS; 2020-09-25)
PROC: 02HV33Z Insertion of Infusion Device into Superior Vena Cava, Percutaneous Approach (ICD-10-PCS; 2020-09-25)
DX: K57.20 Diverticulitis of large intestine with perforation and abscess without bleeding (principal); I48.20 Chronic atrial fibrillation, unspecified; I42.9 Cardiomyopathy, unspecified; R18.8 Other ascites; E46 Unspecified protein-calorie malnutrition; D62 Acute posthemorrhagic anemia; E11.9 Type 2 diabetes mellitus without complications; E03.9 Hypothyroidism, unspecified; I10 Essential (primary) hypertension; M19.90 Unspecified osteoarthritis, unspecified site; M54.9 Dorsalgia, unspecified; G89.29 Other chronic pain; E66.01 Morbid (severe) obesity due to excess calories; Z96.641 Presence of right artificial hip joint; Z96.653 Presence of artificial knee joint, bilateral; E87.6 Hypokalemia; E83.42 Hypomagnesemia; E83.39 Other disorders of phosphorus metabolism; I95.9 Hypotension, unspecified; Z88.5 Allergy status to narcotic agent; Z79.899 Other long term (current) drug therapy; Z79.890 Hormone replacement therapy; Z79.01 Long term (current) use of anticoagulants; Z79.4 Long term (current) use of insulin; Z86.16 Personal history of COVID-19; Z68.35 Body mass index [BMI] 35.0-35.9, adult
CPT/HCPCS: 36415; 36416; 71045; 80048; 80053; 83605; 83735; 84100; 85025; 85027; 85610; 85730; 86850; 86900; 86901; 87040; 88307; 93005; 93010; 96365; 96375; C1751; J1100; J1650; J1815; J1885; J1940; J2370; J2405; J2543; J2550; J2704; J2795; J3010; J3370; J3475; J3480; J3490; J7050; J7120; P9045; P9047; Q0163; S0020; S0028

== ENCOUNTER 2020-12-17 12:17 | Outpatient (CLI) | payer MEDICARE ==
[2020-12-18 08:57] LABS: SARS-CoV-2 PCR by NAA Not Detected (NotDetected)
== END 2020-12-17 12:18 | disposition home or self-care (01) ==
LOC: LABBT 12:17
PROVIDERS: ATTEND Internal Medicine Gastroenterology
DX: Z01.812 Encounter for preprocedural laboratory examination (principal); I50.9 Heart failure, unspecified; I48.91 Unspecified atrial fibrillation; M62.81 Muscle weakness (generalized); K57.20 Diverticulitis of large intestine with perforation and abscess without bleeding; Z20.822 Contact with and (suspected) exposure to COVID-19
CPT/HCPCS: U0003; U0005

== ENCOUNTER 2020-12-20 09:05 | Day surgery (SDC) | payer MEDICARE ==
[2020-12-19 11:24] VITALS: BMI 34.8
[2020-12-20] MEDS ORDERED: PROPOFOL 200 MG/20 ML VIAL ONE (11:18)
[2020-12-20] MEDS ORDERED: Lidocaine 1% PF 5 ML VIAL ONE (11:18)
== END 2020-12-20 12:57 | disposition home or self-care (01) ==
LOC: SDC 09:05
PROVIDERS: ATTEND Internal Medicine Gastroenterology
PROC: 0DBL8ZX Excision of Transverse Colon, Via Natural or Artificial Opening Endoscopic, Diagnostic (ICD-10-PCS; principal; 2020-12-20)
PROC: 0DBH8ZX Excision of Cecum, Via Natural or Artificial Opening Endoscopic, Diagnostic (ICD-10-PCS; 2020-12-20)
DX: Z12.11 Encounter for screening for malignant neoplasm of colon (principal); D12.0 Benign neoplasm of cecum; K63.5 Polyp of colon; Q43.8 Other specified congenital malformations of intestine; K58.9 Irritable bowel syndrome, unspecified; I48.91 Unspecified atrial fibrillation; E89.2 Postprocedural hypoparathyroidism; Z79.01 Long term (current) use of anticoagulants; Z79.4 Long term (current) use of insulin; Z79.899 Other long term (current) drug therapy; Z90.49 Acquired absence of other specified parts of digestive tract; Z93.3 Colostomy status
CPT/HCPCS: 36416; 88305; J2704

== ENCOUNTER 2021-01-05 01:03 | Emergency (ER) | payer MEDICARE ==
[2021-01-05 01:54] LABS: #Basophils 0.1 thou/uL (0.0-0.2); #Eosinphils 0.1 thou/uL (0.0-0.7); #Lymphocytes 2.1 thou/uL (1.20-3.40); #Monocytes 0.5 thou/uL (0.11-0.59); #Neutrophils 4.9 thou/uL (1.40-6.50); %Basophils 0.7 % (0.0-1.0); %Eosinophils 0.8 % (0.0-10.0); %Lymphocytes 27.2 % (21.0-51.0); %Monocytes 6.9 % (0.0-10.0); %Neutrophils 64.4 % (42.0-75.0); Hemoglobin 9.5 g/dL (12.0-16.0); Mean Corpuscular HGB CONC 32.9 g/dL (32.0-36.0); Mean Corpuscular Hemoglobin 27.1 pg (27.0-31.0); Mean Corpuscular Volume 82.3 fL (78.0-98.0); Mean Platelet Volume 8.2 fL (7.4-10.4); Platelet Count 262 thou/uL (130-400); RBC Distribution Width 13.8 % (11.5-14.5); White Blood Cell (WBC) Count 7.6 thou/uL (4.8-10.8)
[2021-01-05 02:18] LABS: ALT (SGPT) 9 U/L (8-55); AST (SGOT) 12 U/L (5-34); Albumin 3.3 g/dL (3.4-4.8); Alkaline Phosphatase 83 U/L (40-110); Anion Gap 13 mmol/L (10-20); BUN (Urea Nitrogen) 50 mg/dL (9.8-20.1); Bilirubin, Total 0.4 mg/dL (0.2-1.2); Calc. Creatinine Clearance 0 mL/min (70-130); Calcium 8.9 mg/dL (7.8-10.44); Carbon Dioxide 30 mmol/L (23-31); Chloride 92 mmol/L (98-107); Glucose 196 mg/dL (80-115); Potassium 3.9 mmol/L (3.5-5.1); Protein, Total 6.3 g/dL (5.8-8.1); Sodium 131 mmol/L (136-145)
== END 2021-01-05 03:43 | disposition home or self-care (01) ==
LOC: ERS 01:03
DX: R07.9 Chest pain, unspecified (principal); E03.9 Hypothyroidism, unspecified; E11.9 Type 2 diabetes mellitus without complications; I10 Essential (primary) hypertension
CPT/HCPCS: 36415; 71045; 80053; 84484; 85025; 93005

== ENCOUNTER 2021-04-13 21:42 | Inpatient (IN) | payer OTHER, MEDICARE ==
[2021-04-14] MEDS ORDERED: Insulin Regular 300 UNITS/3 ML VIAL SC PRN ×2 (02:07)
[2021-04-14] MEDS ORDERED: Ondansetron PF 4 MG/2 ML Vial IVP PRN (02:07)
[2021-04-14] MEDS ORDERED: Dextrose 5% in Water 1,000 ML IV PRN (02:07)
[2021-04-14] MEDS ORDERED: Dextrose 50% Abboject 50 ML SYRINGE SLOW IVP PRN (02:07)
[2021-04-14] MEDS ORDERED: hydrALAZINE 20 MG/ML VIAL SLOW IVP PRN (02:07)
[2021-04-14 02:11] VITALS: BMI 33.5
[2021-04-14] MEDS: Acetaminophen 500 MG TAB PO PRN ×3 (02:47→21:25)
[2021-04-14] MEDS: Levothyroxine Sodium 100 MCG TAB PO SCH (04:48)
[2021-04-14 05:56] LABS: #Basophils 0.1 thou/uL (0.0-0.2); #Eosinphils 0.1 thou/uL (0.0-0.7); #Lymphocytes 1.3 thou/uL (1.20-3.40); #Monocytes 0.6 thou/uL (0.11-0.59); #Neutrophils 3.5 thou/uL (1.40-6.50); %Eosinophils 1.1 % (0.0-10.0); %Lymphocytes 23.9 % (21.0-51.0); %Monocytes 10.1 % (0.0-10.0); %Neutrophils 63.9 % (42.0-75.0); Hemoglobin 13.4 g/dL (12.0-16.0); Mean Corpuscular HGB CONC 31.7 g/dL (32.0-36.0); Mean Corpuscular Hemoglobin 27.2 pg (27.0-31.0); Mean Corpuscular Volume 85.9 fL (78.0-98.0); Mean Platelet Volume 8.4 fL (7.4-10.4); Platelet Count 238 thou/uL (130-400); RBC Distribution Width 17.6 % (11.5-14.5); Red Blood Cell (RBC) Count 4.94 mill/uL (4.20-5.40); White Blood Cell (WBC) Count 5.5 thou/uL (4.8-10.8)
[2021-04-14 06:17] LABS: Anion Gap 16 mmol/L (10-20); BUN (Urea Nitrogen) 30 mg/dL (9.8-20.1); Calc. Creatinine Clearance 55 mL/min (70-130); Carbon Dioxide 24 mmol/L (23-31); Chloride 92 mmol/L (98-107); Glucose 189 mg/dL (80-115); Magnesium 2.1 mg/dL (1.6-2.6); Phosphorus 4.7 mg/dL (2.3-4.7); Potassium 3.7 mmol/L (3.5-5.1); Sodium 128 mmol/L (136-145)
[2021-04-14] MEDS ORDERED: Sodium Chloride 0.9% 1,000 ML IV SCH (07:30)
[2021-04-14] MEDS: Potassium Chloride 20 MEQ in Premix Bag 1 BAG IVPB SCH ×2 (07:52→10:18)
[2021-04-14] MEDS: Sodium Chloride 1 GM TAB PO SCH ×2 (07:53→21:25)
[2021-04-14] MEDS ORDERED: Famotidine 20 MG TAB PO SCH ×2 (09:00→21:00)
[2021-04-14] MEDS ORDERED: Metoprolol Tartrate 50 MG TAB PO SCH (21:00)
[2021-04-14] MEDS ORDERED: Pregabalin 75 MG CAP PO SCH (21:00)
[2021-04-15] MEDS: Levothyroxine Sodium 100 MCG TAB PO SCH (06:08)
[2021-04-15 07:04] LABS: #Basophils 0.1 thou/uL (0.0-0.2); #Eosinphils 0.1 thou/uL (0.0-0.7); #Lymphocytes 1.9 thou/uL (1.20-3.40); #Monocytes 0.6 thou/uL (0.11-0.59); #Neutrophils 3.5 thou/uL (1.40-6.50); %Basophils 1.6 % (0.0-1.0); %Eosinophils 2.1 % (0.0-10.0); %Lymphocytes 30.5 % (21.0-51.0); %Neutrophils 56.8 % (42.0-75.0); Hemoglobin 12.8 g/dL (12.0-16.0); Mean Corpuscular HGB CONC 31.1 g/dL (32.0-36.0); Mean Corpuscular Volume 86.8 fL (78.0-98.0); Mean Platelet Volume 7.9 fL (7.4-10.4); Platelet Count 208 thou/uL (130-400); RBC Distribution Width 17.5 % (11.5-14.5); Red Blood Cell (RBC) Count 4.75 mill/uL (4.20-5.40); White Blood Cell (WBC) Count 6.2 thou/uL (4.8-10.8)
[2021-04-15 07:31] LABS: Anion Gap 13 mmol/L (10-20); BUN (Urea Nitrogen) 29 mg/dL (9.8-20.1); Calc. Creatinine Clearance 60 mL/min (70-130); Carbon Dioxide 27 mmol/L (23-31); Chloride 93 mmol/L (98-107); Glucose 141 mg/dL (80-115); Phosphorus 3.7 mg/dL (2.3-4.7); Potassium 3.7 mmol/L (3.5-5.1); Sodium 129 mmol/L (136-145)
[2021-04-15] MEDS: Sodium Chloride 1 GM TAB PO SCH (08:34)
[2021-04-15] MEDS: Acetaminophen 500 MG TAB PO PRN ×2 (12:18→17:30)
[2021-04-15 16:13] VITALS: BP 132/67; TEMP 98.1
== END 2021-04-15 18:20 | disposition home or self-care (01) | DRG 86 ==
LOC: 2NO 23:25 → OBSVTOIN 04-14 02:07 → SURG A 04-14 12:57
PROVIDERS: ADMIT Surgery; ATTEND Surgery
DX: S06.5X0A Traumatic subdural hemorrhage without loss of consciousness, initial encounter (principal); E87.1 Hypo-osmolality and hyponatremia; N17.9 Acute kidney failure, unspecified; E11.22 Type 2 diabetes mellitus with diabetic chronic kidney disease; S06.6X0A Traumatic subarachnoid hemorrhage without loss of consciousness, initial encounter; I12.9 Hypertensive chronic kidney disease with stage 1 through stage 4 chronic kidney disease, or unspecified chronic kidney disease; I48.91 Unspecified atrial fibrillation; Z96.659 Presence of unspecified artificial knee joint; Z96.649 Presence of unspecified artificial hip joint; S01.01XA Laceration without foreign body of scalp, initial encounter; W19.XXXA Unspecified fall, initial encounter; N18.30 Chronic kidney disease, stage 3 unspecified; Z79.01 Long term (current) use of anticoagulants; Y92.89 Other specified places as the place of occurrence of the external cause
CPT/HCPCS: 36415; 36416; 70450; 80048; 83735; 84100; 85025; J1815; J3480; J7050

== ENCOUNTER 2021-04-26 07:21 | Outpatient (CLI) | payer MEDICARE | END 2021-04-26 07:22 | disposition home or self-care (01) | LOC: CT 07:21 | PROVIDERS: ATTEND Neurological Surgery | DX: S06.5X0S Traumatic subdural hemorrhage without loss of consciousness, sequela (principal); S06.6X0S Traumatic subarachnoid hemorrhage without loss of consciousness, sequela; R51.9 Headache, unspecified | CPT/HCPCS: 70450 ==

== ENCOUNTER 2021-05-22 10:37 | Emergency (ER) | payer MEDICARE ==
[2021-05-22 11:15] LABS: #Basophils 0.1 thou/uL (0.0-0.2); #Monocytes 0.4 thou/uL (0.11-0.59); #Neutrophils 3.5 thou/uL (1.40-6.50); %Basophils 1.5 % (0.0-1.0); %Eosinophils 0.7 % (0.0-10.0); %Lymphocytes 33.6 % (21.0-51.0); %Monocytes 6.2 % (0.0-10.0); Hemoglobin 16.6 g/dL (12.0-16.0); Mean Corpuscular HGB CONC 30.7 g/dL (32.0-36.0); Mean Corpuscular Hemoglobin 27.1 pg (27.0-31.0); Mean Corpuscular Volume 88.5 fL (78.0-98.0); Mean Platelet Volume 8.2 fL (7.4-10.4); Platelet Count 235 thou/uL (130-400); RBC Distribution Width 15.8 % (11.5-14.5); Red Blood Cell (RBC) Count 6.11 mill/uL (4.20-5.40)
[2021-05-22 11:42] LABS: ALT (SGPT) 11 U/L (8-55); AST (SGOT) 16 U/L (5-34); Albumin 4.2 g/dL (3.4-4.8); Alkaline Phosphatase 116 U/L (40-110); Anion Gap 15 mmol/L (10-20); BUN (Urea Nitrogen) 20 mg/dL (9.8-20.1); Bilirubin, Total 0.8 mg/dL (0.2-1.2); Calc. Creatinine Clearance 0 mL/min (70-130); Carbon Dioxide 25 mmol/L (23-31); Chloride 101 mmol/L (98-107); Globulin 3.7 g/dL (2.4-3.5); Glucose 166 mg/dL (80-115); Potassium 3.7 mmol/L (3.5-5.1); Protein, Total 7.9 g/dL (5.8-8.1); Sodium 137 mmol/L (136-145)
[2021-05-22 12:45] LABS: INR-International Normal Ratio 1.2; PTT 35.1 sec (22.9-36.1); Prothrombin Time 15.2 sec (12.0-14.7)
== END 2021-05-22 15:25 | disposition home or self-care (01) ==
LOC: ERS 10:37
DX: R42 Dizziness and giddiness (principal); M87.9 Osteonecrosis, unspecified; S01.01XD Laceration without foreign body of scalp, subsequent encounter; W01.10XD Fall on same level from slipping, tripping and stumbling with subsequent striking against unspecified object, subsequent encounter; E11.9 Type 2 diabetes mellitus without complications; Z79.4 Long term (current) use of insulin; E03.9 Hypothyroidism, unspecified; I10 Essential (primary) hypertension; M19.90 Unspecified osteoarthritis, unspecified site
CPT/HCPCS: 36415; 70450; 71045; 72125; 72192; 80053; 83605; 83880; 84484; 85025; 85610; 85730; 87040; 93005; 94760

== ENCOUNTER 2022-07-28 10:49 | Outpatient (CLI) | payer MEDICARE | END 2022-07-28 10:50 | disposition home or self-care (01) | LOC: BICMAMMO 10:49 | PROVIDERS: ATTEND Physician Assistant | DX: Z12.31 Encounter for screening mammogram for malignant neoplasm of breast (principal); Z78.0 Asymptomatic menopausal state; R92.8 Other abnormal and inconclusive findings on diagnostic imaging of breast | CPT/HCPCS: 77063; 77067; 77080 ==

== ENCOUNTER 2022-08-07 09:23 | Outpatient (CLI) | payer MEDICARE | END 2022-08-07 09:24 | disposition home or self-care (01) | LOC: BICMAMMO 09:23 | PROVIDERS: ATTEND Physician Assistant | DX: R92.8 Other abnormal and inconclusive findings on diagnostic imaging of breast (principal); N63.20 Unspecified lump in the left breast, unspecified quadrant | CPT/HCPCS: 76642; 77065; G0279 ==

== ENCOUNTER 2022-09-05 06:24 | Day surgery (SDC) | payer MEDICARE, OTHER ==
[2022-09-01 11:02] VITALS: BMI 33.6
[2022-09-05] MEDS ORDERED: Sodium Bicarbonate 2.5 MEQ/5 ML VIAL ONE (06:29)
[2022-09-05] MEDS ORDERED: Lidocaine 1% PF 5 ML VIAL ONE ×2 (06:29→12:01)
[2022-09-05] MEDS ORDERED: Methylene Blue 50 MG/10 ML AMPUL ONE (10:46)
[2022-09-05] MEDS ORDERED: Bupivacaine/Epinephrine 0.25% 30 ML VIAL ONE (10:46)
[2022-09-05] MEDS ORDERED: Lidocaine 2% PF 5 ML VIAL ONE (10:46)
[2022-09-05] MEDS ORDERED: Fentanyl 250 MCG/5 ML VIAL ONE (11:02)
[2022-09-05] MEDS ORDERED: Sodium Chloride 0.9% 100 ML ONE (11:11)
[2022-09-05] MEDS ORDERED: CEFAZOLIN 2 GM VIAL ONE (11:11)
[2022-09-05] MEDS ORDERED: Ketamine In 0.9 % NaCl 50 MG/5 ML SYRINGE ONE (11:33)
[2022-09-05] MEDS ORDERED: Ondansetron PF 4 MG/2 ML Vial ONE (12:01)
[2022-09-05] MEDS ORDERED: PROPOFOL 200 MG/20 ML VIAL ONE (12:01)
[2022-09-05] MEDS ORDERED: fentaNYL 50 mcg/mL 1 mL Vial ONE (13:34)
== END 2022-09-05 15:19 | disposition home or self-care (01) ==
LOC: SDC 06:24
PROVIDERS: ATTEND Surgery
PROC: 0HBU0ZZ Excision of Left Breast, Open Approach (ICD-10-PCS; principal; 2022-09-05)
DX: C50.412 Malignant neoplasm of upper-outer quadrant of left female breast (principal); Z17.0 Estrogen receptor positive status [ER+]; K21.9 Gastro-esophageal reflux disease without esophagitis; M19.90 Unspecified osteoarthritis, unspecified site; F41.9 Anxiety disorder, unspecified; E78.00 Pure hypercholesterolemia, unspecified; E11.9 Type 2 diabetes mellitus without complications; Z96.641 Presence of right artificial hip joint; Z88.1 Allergy status to other antibiotic agents; Z79.899 Other long term (current) drug therapy; Z87.891 Personal history of nicotine dependence
CPT/HCPCS: 19285; 19301; 38525; 76098; 78195; 82962; A9541; J3010; Q9968; 36416; 88307; 88309; 88341; 88342; J2001; J2405; J2704; J3490

== ENCOUNTER 2023-09-07 08:53 | Outpatient (CLI) | payer MEDICARE | END 2023-09-07 08:54 | disposition home or self-care (01) | LOC: BICMAMMO 08:53 | PROVIDERS: ATTEND Surgery | DX: Z08 Encounter for follow-up examination after completed treatment for malignant neoplasm (principal); Z85.3 Personal history of malignant neoplasm of breast | CPT/HCPCS: 77066; G0279 ==